=== PATIENT | male | born 1940 | race Two or more races ===

== ENCOUNTER 2019-01-28 14:07 | Inpatient (IN) | payer MEDICARE, OTHER ==
[~2019-01-28] VITALS: Ht 167.6 cm; Wt 69.4 kg
[2019-01-28 14:15] VITALS: BP 114/52
--- NOTE | 2019-01-28 14:17 | NUR ---
ED Nurse Note:pt. was BIBA from home s/p fall yesterday and he was on the floor all night till rescued today, pt. is A/Ox3 non ambulatory, seen by ER
--- NOTE | 2019-01-28 14:26 | Emergency Room Report ---
History of Present Illness General Chief Complaint: Multiple Trauma/Fall Source: EMS Present Illness HPI This is a 78-year-old male who states he he is homeless, who tripped and fell last night and injured his left hip. He was unable to walk and laid on the ground all night.. He denies any loss of consciousness. He denies any headache. He denies any head injury. He complains of no neck pain. He states that the left hip pain is constant and worse on movement. A dull pain Allergies: Coded Allergies: No Known Allergies (Unverified , 01/28/19) Patient History Past Medical History: other - Arthritis Past Surgical History: none Pertinent Family History: none Nursing Documentation-PMH Hx Hypertension: Yes Review of Systems All Other Systems: negative except mentioned in HPI Physical Exam Vital Signs Date Time Temp Pulse Resp B/P (MAP) Pulse Ox O2 Delivery O2 Flow Rate FiO2 01/28/19 13:55 97.3 60 18 114/52 99 Room Air Head: normocephalic, atraumatic ENT: hearing grossly normal, normal voice Neck: full range of motion, supple Cardiovascular #1: regular rate, rhythm, no edema Musculoskeletal: other - left hip tenderness. shortened leg. distal NV intact Medical Decision Making Diagnostic Impression: Primary Impression: Intertrochanteric fracture of left hip ER Course Patient presented with significant complexity risk. I see no evidence of cervical spine injury. X-ray was reviewed. The patient was given IV morphine for pain. I discussed this with the on-call physician who will admit this patient to his service. Abdomen is soft. The patient is alert and oriented. Laboratory Tests Test 01/28/19 14:35 01/28/19 15:25 White Blood Count 9.8 K/UL (4.8-10.8) Red Blood Count 4.06 M/UL (4.70-6.10) L Hemoglobin 11.9 G/DL (14.2-18.0) L Hematocrit 36.1 % (42.0-52.0) L Mean Corpuscular Volume 89 FL (80-99) Mean Corpuscular Hemoglobin 29.4 PG (27.0-31.0) Mean Corpuscular Hemoglobin Concent 33.1 G/DL (32.0-36.0) Red Cell Distribution Width 14.1 % (11.6-14.8) Platelet Count 228 K/UL (150-450) Mean Platelet Volume 6.2 FL (6.5-10.1) L Neutrophils (%) (Auto) % (45.0-75.0) Lymphocytes (%) (Auto) % (20.0-45.0) Monocytes (%) (Auto) % (1.0-10.0) Eosinophils (%) (Auto) % (0.0-3.0) Basophils (%) (Auto) % (0.0-2.0) Differential Total Cells Counted 100 Neutrophils % (Manual) 87 % (45-75) H Lymphocytes % (Manual) 8 % (20-45) L Monocytes % (Manual) 5 % (1-10) Eosinophils % (Manual) 0 % (0-3) Basophils % (Manual) 0 % (0-2) Band Neutrophils 0 % (0-8) Platelet Estimate Adequate Platelet Morphology Normal Hypochromasia 1+ Anisocytosis 1+ Sodium Level 133 MMOL/L (136-145) L Potassium Level 4.0 MMOL/L (3.5-5.1) Chloride Level 97 MMOL/L (98-107) L Carbon Dioxide Level 25 MMOL/L (21-32) Anion Gap 11 mmol/L (5-15) Blood Urea Nitrogen 35 mg/dL (7-18) H Creatinine 2.1 MG/DL (0.55-1.30) H Estimate Glomerular Filtration Rate mL/min (>60) Glucose Level 99 MG/DL (74-106) Calcium Level 9.4 MG/DL (8.5-10.1) Total Bilirubin 0.9 MG/DL (0.2-1.0) Aspartate Amino Transferase (AST) 66 U/L (15-37) H Alanine Aminotransferase (ALT) 54 U/L (12-78) Alkaline Phosphatase 320 U/L (46-116) H Total Creatine Kinase 234 U/L (26-308) Total Protein 8.7 G/DL (6.4-8.2) H Albumin 3.7 G/DL (3.4-5.0) Globulin 5.0 g/dL Albumin/Globulin Ratio 0.7 (1.0-2.7) L Prothrombin Time 10.6 SEC (9.30-11.50) Prothrombin Time INR 1.0 (0.9-1.1) PTT 30 SEC (23-33) EKG Diagnostic Results EKG Time: 16:22 Rate: normal Rhythm: NSR ST Segments: no acute changes ASA given to the pt in ED: No Rhythm Strip Diag. Results Rhythm Strip Time: 16:22 EP Interpretation: yes Rhythm: NSR, no PVC's, no ectopy Last Vital Signs Date Time Temp Pulse Resp B/P (MAP) Pulse Ox O2 Delivery O2 Flow Rate FiO2 01/28/19 14:15 60 18 Room Air 01/28/19 14:15 97.3 114/52 99 Disposition: ADMITTED INPATIENT Condition: Serious Scripts Unable to Obtain Active Prescriptions or Reported Meds TD DAVE Jan 28, 2019 14:26
[2019-01-28] MEDS ORDERED: Morphine Sulfate 4mg/ml Inj (IV USE ONLY) IVP ONE (14:30)
[2019-01-28] MEDS: Sodium Chloride 550 ML IV SCH ×2 (14:36→18:54)
[2019-01-28 14:48] LABS: HEMATOCRIT 36.1 % (42.0-52.0); HEMOGLOBIN 11.9 G/DL (14.2-18.0); MEAN CORPUSCULAR VOLUME 89 FL (80-99); PLATELET COUNT 228 K/UL (150-450); RED BLOOD COUNT 4.06 M/UL (4.70-6.10); RED CELL DISTRIBUTION WIDTH 14.1 % (11.6-14.8); WHITE BLOOD COUNT 9.8 K/UL (4.8-10.8)
[2019-01-28 14:58] LABS: ANION GAP 11 mmol/L (5-15); BLOOD UREA NITROGEN 35 mg/dL (7-18); CALCIUM 9.4 MG/DL (8.5-10.1); CARBON DIOXIDE 25 MMOL/L (21-32); CHLORIDE 97 MMOL/L (98-107); CREATININE 2.1 MG/DL (0.55-1.30); SODIUM 133 MMOL/L (136-145)
[2019-01-28 15:03] LABS: ALANINE AMINOTRANSFERASE 54 U/L (12-78); ALBUMIN 3.7 G/DL (3.4-5.0); ALBUMIN/GLOBULIN RATIO 0.7 (1.0-2.7); ALKALINE PHOSPHATASE 320 U/L (46-116); ASPARTATE AMINO TRANSFERASE 66 U/L (15-37); BILIRUBIN,TOTAL 0.9 MG/DL (0.2-1.0); CREATINE KINASE 234 U/L (26-308)
--- NOTE | 2019-01-28 16:17 | Diagnostic Imaging Report ---
Indication: Left hip pain, trauma Technique: 2 views of the left hip Comparison: none Findings: There is an intertrochanteric fracture of the left hip. This is distracted by about 1 cm, slightly angulated. No acetabular fracture demonstrated. The hip joint is preserved. Impression: Positive for left hip intertrochanteric fracture
[2019-01-28] MEDS ORDERED: Morphine Sulfate 4mg/ml Inj (IV USE ONLY) IVP PRN (16:45)
[2019-01-28 17:24] VITALS: BP 118/58
--- NOTE | 2019-01-28 19:58 | NUR ---
ER Nurse Note: Report given to MORTEZA Reynolds in [place] for continuity of care. Pt a&ox4, VSS, no signs of distress. Pt is asleep; no signs of pain. All belonging taken with pt.
[2019-01-28 20:00] VITALS: BP 120/60
--- NOTE | 2019-01-28 20:40 | NUR ---
NURSE NOTES: Report received from Elda [employer]. Patient is transferred via gurney from ER to [address] [place] [address] without any incident. Patient is AOx4 and able to make needs known. Respiratory even and unlabored. Patient complains of 4/10 on left hip pain; will address as appropriate. IV site is asymptomatic, patent, and intact. Pedal pulse present on affected leg, warm and able to feel sensation. Belongings list checked and signed with Ed [employer]. Patient has money at bedside, patient refused to take money in the safe and requested to be kept at bedside. VSS. Skin assessment done. Bed is in lowest position with side rails up x2 and brakes are engaged. Encouraged patient to use call light when in need of assistance, pt verbalized understanding. Will contact primary MD for inpatient orders.
[2019-01-28] MEDS ORDERED: HYDROcodone/Acetamin 5/325 tab ORAL PRN (21:30)
[2019-01-28] MEDS ORDERED: Morphine Sulfate 2mg/ml Inj(IV/IM USE ONLY) IVP PRN (21:30)
--- NOTE | 2019-01-28 21:30 | NUR ---
NURSE NOTES: Nephew is at bedside. Per family member, patient lives alone at home. Patient states he does not have home medications other than OTC medications and no past medical history.
[2019-01-29] VITALS: BP 131/62
--- NOTE | 2019-01-29 01:00 | NUR ---
NURSE NOTES: Patient is asleep but arousable by voice. Respiratory even and unlabored. VSS. Will continue to monitor.
[2019-01-29 04:00] VITALS: BP 134/70
--- NOTE | 2019-01-29 04:08 | NUR ---
NURSE NOTES: Patient is asleep but easily arousable. Visible chest rise observed. Respiratory even and unlabored. Will continue to monitor.
[2019-01-29 06:23] LABS: BASOPHILS % (AUTO) 0.6 % (0.0-2.0); EOSINOPHILS % (AUTO) 3.4 % (0.0-3.0); HEMATOCRIT 32.2 % (42.0-52.0); HEMOGLOBIN 10.6 G/DL (14.2-18.0); LYMPHOCYTES % (AUTO) 11.5 % (20.0-45.0); MEAN CORPUSCULAR VOLUME 89 FL (80-99); MONOCYTES % (AUTO) 11.4 % (1.0-10.0); NEUTROPHILS % (AUTO) 73.2 % (45.0-75.0); PLATELET COUNT 178 K/UL (150-450); RED BLOOD COUNT 3.62 M/UL (4.70-6.10); RED CELL DISTRIBUTION WIDTH 14.3 % (11.6-14.8); WHITE BLOOD COUNT 7.8 K/UL (4.8-10.8)
[2019-01-29 07:05] LABS: ANION GAP 10 mmol/L (5-15); BLOOD UREA NITROGEN 33 mg/dL (7-18); CARBON DIOXIDE 25 MMOL/L (21-32); CHLORIDE 101 MMOL/L (98-107); CHOLESTEROL 114 MG/DL (< 200); CREATININE 1.7 MG/DL (0.55-1.30); HDL CHOLESTEROL 43 MG/DL (40-60); POTASSIUM 4.4 MMOL/L (3.5-5.1); SODIUM 135 MMOL/L (136-145); TRIGLYCERIDES 135 MG/DL (30-150)
--- NOTE | 2019-01-29 07:20 | NUR ---
HAND-OFF: Report given to Leeroy PRO. Patient is observed in bed, awake, alert, oriented. Patient is in stable condition. Endorsed plan of care.
--- NOTE | 2019-01-29 07:34 | NUR ---
NURSE NOTES: Received report from MORTEZA Reynolds. Rounding done with outgoing nurse. Patient a/o x4 having breakfast. No respiratory distress noted. Denies pain at this time. Questions answered. Bed in lowest position, call light within reach. Will continue to monitor.
[2019-01-29 08:00] VITALS: BP 96/54
[2019-01-29] MEDS: Heparin 5000 units/ml inj SUBQ SCH ×2 (08:49→20:03)
--- NOTE | 2019-01-29 09:49 | NUR ---
CASE MANAGEMENT:REVIEW 78 YR OLD MALE BIBA FROM HOME CC: S/P FALL SI: LT HIP FRACTURE 97.4 60 18 114/52 99% ON RA IS: IV MORPHINE IV ZOFRAN XRAY HIP : TO MED/[facility]
--- NOTE | 2019-01-29 11:41 | History & Physical ---
History and Physical History & Physicial Patient is seen and examined. Full Dictation completed on 1141 hrs Guille Stephen MD Jan 29, 2019 11:41
--- NOTE | 2019-01-29 11:43 | General Progress Note ---
Assessment/Plan Assessment/Plan Full Dictatin in progress Plan: Ortho , per Dr Bourgeois Started on Thyroid supplementation Renal US Comment: I reviewed result of Echo. Patient is medically stable for planned surgery, with no medical contraindication. Patient is in moderate cardiovascular risk for this surgery ,with 1-3 % risk of periop cardiac morbidity. Subjective Allergies: Coded Allergies: No Known Allergies (Unverified , 01/28/19) Objective Last 24 Hour Vital Signs Date Time Temp Pulse Resp B/P (MAP) Pulse Ox O2 Delivery O2 Flow Rate FiO2 01/29/19 08:00 98.2 82 19 96/54 (68) 96 01/29/19 04:00 98.3 70 17 134/70 (91) 98 01/29/19 00:00 98.1 65 18 131/62 (85) 98 01/28/19 23:42 Room Air 01/28/19 20:00 97.3 78 17 120/60 99 Room Air 01/28/19 20:00 97.2 82 17 120/60 99 Room Air 01/28/19 17:24 97.3 01/28/19 17:24 97.3 65 17 118/58 99 Room Air 01/28/19 16:14 97.3 01/28/19 14:15 60 18 Room Air 01/28/19 14:15 97.3 60 18 114/52 99 Room Air 01/28/19 13:55 97.3 60 18 114/52 99 Room Air Intake and Output 01/28/19 01/29/19 18:59 06:59 Intake Total 5860 ml Output Total 150 ml Balance 5710 ml Intake Oral 360 ml IV Total 5500 ml Output Urine Total 150 ml # Voids 2 Laboratory Tests 01/28/19 14:35: White Blood Count 9.8, Red Blood Count 4.06L, Hemoglobin 11.9L, Hematocrit 36.1L , Mean Corpuscular Volume 89, Mean Corpuscular Hemoglobin 29.4, Mean Corpuscular Hemoglobin Concent 33.1, Red Cell Distribution Width 14.1, Platelet Count 228, Mean Platelet Volume 6.2L, Neutrophils (%) (Auto) , Lymphocytes (%) ( Auto) , Monocytes (%) (Auto) , Eosinophils (%) (Auto) , Basophils (%) (Auto) , Differential Total Cells Counted 100, Neutrophils % (Manual) 87H, Lymphocytes % (Manual) 8L, Monocytes % (Manual) 5, Eosinophils % (Manual) 0, Basophils % ( Manual) 0, Band Neutrophils 0, Platelet Estimate Adequate, Platelet Morphology Normal, Hypochromasia 1+, Anisocytosis 1+, Sodium Level 133L, Potassium Level 4.0, Chloride Level 97L, Carbon Dioxide Level 25, Anion Gap 11, Blood Urea Nitrogen 35H, Creatinine 2.1H, Estimat Glomerular Filtration Rate , Glucose Level 99, Calcium Level 9.4, Total Bilirubin 0.9, Aspartate Amino Transf (AST/ SGOT) 66H, Alanine Aminotransferase (ALT/SGPT) 54, Alkaline Phosphatase 320H, Total Creatine Kinase 234, Total Protein 8.7H, Albumin 3.7, Globulin 5.0, Albumin/Globulin Ratio 0.7L 01/28/19 15:25: Prothrombin Time 10.6, Prothromb Time International Ratio 1.0, Activated Partial Thromboplast Time 30 01/29/19 05:50: White Blood Count 7.8, Red Blood Count 3.62L, Hemoglobin 10.6L, Hematocrit 32.2L , Mean Corpuscular Volume 89, Mean Corpuscular Hemoglobin 29.3, Mean Corpuscular Hemoglobin Concent 32.9, Red Cell Distribution Width 14.3, Platelet Count 178, Mean Platelet Volume 7.4, Neutrophils (%) (Auto) 73.2, Lymphocytes (% ) (Auto) 11.5L, Monocytes (%) (Auto) 11.4H, Eosinophils (%) (Auto) 3.4H, Basophils (%) (Auto) 0.6, Sodium Level 135L, Potassium Level 4.4, Chloride Level 101, Carbon Dioxide Level 25, Anion Gap 10, Blood Urea Nitrogen 33H, Creatinine 1.7H, Estimat Glomerular Filtration Rate , Glucose Level 79, Calcium Level 9.0, Hemoglobin A1c 5.9, Pro-B-Type Natriuretic Peptide 2717H, Triglycerides Level 135, Cholesterol Level 114, LDL Cholesterol 51, HDL Cholesterol 43, Cholesterol/HDL Ratio 2.7L, Thyroid Stimulating Hormone (TSH) 5.525H Height (Feet): 5 Height (Inches): 6.00 Weight (Pounds): 155 Guille Stephen MD Jan 29, 2019 11:42
[2019-01-29 12:00] VITALS: BP 104/57
--- NOTE | 2019-01-29 13:19 | Consultation ---
Consult Note Consult Note chart reviewed. left hip IT fracture after a fall plan for left hip ORIF tomorrow am 6:45 med clearance 2D echo NPO Mamie Moya Jan 29, 2019 13:19
--- NOTE | 2019-01-29 14:17 | Consultation ---
Consult Note Consult Note asked to eval for elevated Cr This is a 78-year-old male who states he he is homeless, who tripped and fell last night and injured his left hip. He was unable to walk and laid on the ground all night.. He denies any loss of consciousness. He denies any headache. He denies any head injury. He complains of no neck pain. He states that the left hip pain is constant and worse on movement. A dull pain Allergies: No Known Allergies (Unverified , 01/28/19) Hx Hypertension: Yes Assessment/Plan Acute Renal failure ? Underlying CKD Fall, Left Hip fx Anemia Hyponatremia Slow Hydrate with Isotonic solution Stool Softner Anemia kat Urine studies monitor renal parameters Denver Weiss MD Jan 29, 2019 14:17
[2019-01-29] MEDS: D5NS 1,000 ML IV SCH (15:17)
--- NOTE | 2019-01-29 15:23 | NUR ---
NURSE NOTES: 2D echo was done and Dr. Stephen notified regarding the results.
--- NOTE | 2019-01-29 15:54 | NUR ---
NURSE NOTES: Tried to insert jean catheter but failed. Patient refused to get inserted. Called Dr. Ward and left message.
--- NOTE | 2019-01-29 15:57 | Anethesia Preoperative Eval ---
Anesthesia Pre-op PMH/ROS General Date of Evaluation: Jan 29, 2019 Time of Evaluation: 15:54 Anesthesiologist: Attila ASA Score: ASA 2 Mallampati Score Class I : Soft palate, uvula, fauces, pillars visible Class II: Soft palate, uvula, fauces visible Class III: Soft palate, base of uvula visible Class IV: Only hard plate visible Mallampati Classification: Class II Surgeon: Ivanna Diagnosis: L hip Fx Surgical Procedure: ORIF of L hip Fx Anesthesia History: none Social History: smoking - h/o Family History: no anesthesia problems Allergies: Coded Allergies: No Known Allergies (Unverified , 01/28/19) Medications: see eMAR Patient NPO?: Yes Past Medical History Cardiovascular: Reports: HTN; Denies: CAD, IN, valve dz, arrhythmia, other Pulmonary: Denies: asthma, COPD, SHIVA, other Gastrointestinal/Genitourinary: Reports: GERD, CRI Neurologic/Psychiatric: Denies: dementia, CVA, depression/anxiety, TIA, other Endocrine: Reports: hypothyroidism; Denies: DM, steroids, other HEENT: Denies: cataract (L), cataract (R), glaucoma, BUCK[place] (L), [place] (R), other Hematology/Immune: Reports: anemia - mild Musculoskeletal/Integumentary: Reports: OA; Denies: RA, DJD, DDD, edema, other PMH Narrative: as above PSxH Narrative: see H&P Anesthesia Pre-op Phys. Exam Physician Exam Last Vital Signs Date Time Temp Pulse Resp B/P (MAP) Pulse Ox O2 Delivery O2 Flow Rate FiO2 01/29/19 12:00 98.4 63 20 104/57 (73) 95 01/29/19 09:00 Room Air Constitutional: NAD Neurologic: CN 2-12 intact Cardiovascular: RRR, no M/R/G Respiratory: CTA Gastrointestinal: S/NT/ND Airway Exam Mallampati Score: Class II MO: limited Neck: stiff ROM: limited Teeth: missing Dentures: no upper, no lower Anesthesia Pre-op A/P Labs Hematology Test 01/29/19 05:50 White Blood Count 7.8 K/UL (4.8-10.8) Red Blood Count 3.62 M/UL (4.70-6.10) L Hemoglobin 10.6 G/DL (14.2-18.0) L Hematocrit 32.2 % (42.0-52.0) L Mean Corpuscular Volume 89 FL (80-99) Mean Corpuscular Hemoglobin 29.3 PG (27.0-31.0) Mean Corpuscular Hemoglobin Concent 32.9 G/DL (32.0-36.0) Red Cell Distribution Width 14.3 % (11.6-14.8) Platelet Count 178 K/UL (150-450) Mean Platelet Volume 7.4 FL (6.5-10.1) Neutrophils (%) (Auto) 73.2 % (45.0-75.0) Lymphocytes (%) (Auto) 11.5 % (20.0-45.0) L Monocytes (%) (Auto) 11.4 % (1.0-10.0) H Eosinophils (%) (Auto) 3.4 % (0.0-3.0) H Basophils (%) (Auto) 0.6 % (0.0-2.0) Chemistry Test 01/29/19 05:50 Sodium Level 135 MMOL/L (136-145) L Potassium Level 4.4 MMOL/L (3.5-5.1) Chloride Level 101 MMOL/L (98-107) Carbon Dioxide Level 25 MMOL/L (21-32) Anion Gap 10 mmol/L (5-15) Blood Urea Nitrogen 33 mg/dL (7-18) H Creatinine 1.7 MG/DL (0.55-1.30) H Estimat Glomerular Filtration Rate mL/min (>60) Glucose Level 79 MG/DL (74-106) Hemoglobin A1c 5.9 % (4.3-6.0) Calcium Level 9.0 MG/DL (8.5-10.1) C-Reactive Protein, Quantitative 7.6 mg/dL (0.00-0.90) H Pro-B-Type Natriuretic Peptide 2717 pg/mL (0-125) H Triglycerides Level 135 MG/DL (30-150) Cholesterol Level 114 MG/DL (< 200) LDL Cholesterol 51 mg/dL (<100) HDL Cholesterol 43 MG/DL (40-60) Cholesterol/HDL Ratio 2.7 (3.3-4.4) L Thyroid Stimulating Hormone (TSH) 5.525 uiU/mL (0.358-3.740) Studies Pre-op Studies: EKG - SR Risk Assessment & Plan Assessment: ASA 2 Plan: SAB vs GA Status Change Before Surgery: No Pre-Antibiotics Drug: as scheduled Peter Aiken MD Jan 29, 2019 15:57
[2019-01-29 16:00] VITALS: BP 114/74
--- NOTE | 2019-01-29 16:52 | Cardiology Report ---
APPROVED REPORT EXAM: Two-dimensional and M-mode echocardiogram with Doppler and color Doppler. INDICATION Pre-Op M-Mode DIMENSIONS IVSd0.8 (0.7-1.1cm)Left Atrium (MM)3.0 (1.6-4.0cm) LVDd5.5 (3.5-5.6cm)Aortic Root3.6 (2.0-3.7cm) PWd1.2 (0.7-1.1cm)Aortic Cusp Exc.1.7 (1.5-2.0cm) LVDs3.6 (2.5-4.0cm) PWs1.3 cm Normal left ventricular chamber size, systolic function and wall motion. Left ventricular ejection fraction estimated to be 55 %. Mild left ventricular hypertrophy by 2D. Anterior Echo-free space, may be due to pericardial fat or effusion. All other cardiac chamber sizes are within normal limits. Focal aortic valve sclerosis with adequate cusp excursion. Thickened mitral valve leaflets with normal excursion. Mitral annulus and aortic root calcification. Pulmonic valve not well visualized. Normal tricuspid valve structure. IVC measured at 1.7 cm with slight physiologic collapse A color flow and spectral Doppler study was performed and revealed: No aortic regurgitation. Trace mitral regurgitation. Mitral diastolic velocities suggest reduced left ventricular relaxation c/w mild LV diastolic dysfunction (Grade I ). Trace tricuspid regurgitation. Tricuspid systolic velocities suggests peak right ventricular systolic pressure of 13 mmHg
--- NOTE | 2019-01-29 17:02 | Cardiology Report ---
APPROVED REPORT EKG Measurement Heart [id number] CO [id number] Sinus rhythm with 1st degree AV block with occasional premature ventricular complexes Abnormal ECG
[2019-01-29] MEDS: Docusate 100mg cap ORAL SCH (17:37)
--- NOTE | 2019-01-29 18:00 | NUR ---
NURSE NOTES: Dr. Ward did not call back. Called Dr. Ward and left the message.
--- NOTE | 2019-01-29 18:30 | NUR ---
NURSE NOTES: Patient will get surgery tomorrow morning 0600am and midnight NPO instruction was given.
--- NOTE | 2019-01-29 19:30 | NUR ---
HAND-OFF: Report given to MORTEZA Davis. Patient in stable condition. Endorsed to night nurse regarding Dr. Ward did not call me back for refusing jean catheter.
--- NOTE | 2019-01-29 19:30 | History and Physical Report ---
DATE OF ADMISSION: 01/28/2019 SOURCE OF INFORMATION: Patient and EMR. HISTORY OF PRESENT ILLNESS: The patient is a 78-year-old male with unremarkable history, who fell down on the street and was transferred to the hospital with diagnosis of a left-sided hip fracture. At the time of evaluation, the patient denies chest pain or shortness of breath. No nausea. No vomitus. No diarrhea. No constipation. SOCIAL HISTORY: The patient originally from [facility]. The patient denies history of illicit drug abuse or alcohol abuse. Denies tobacco use. REVIEW OF SYSTEMS: All 14 elements of review of systems reviewed. Pertinent positive and negative as above. MEDICATIONS: Current hospital medications including, but not limited to Buck[place] p.r.n., acetaminophen, Protonix. IMAGING: Hip x-ray dated 01/28/2019 shows intertrochanteric fracture of left hip. PAST MEDICAL AND SURGICAL HISTORY: The patient denies. PHYSICAL EXAMINATION: VITAL SIGNS: Blood pressure 110/50, temperature 98.2, pulse ox 98% on room air, respiratory rate 18. HEAD AND NECK: Atraumatic and normocephalic. CHEST: Clear to auscultation. HEART: S1, S2. Regular rate and rhythm. ABDOMEN: Soft. No organomegaly. MUSCULOSKELETAL: Positive for decreased range of motion on the left lower extremity. NEUROLOGY: The patient is awake, alert, oriented x3. LABORATORY DATA: Labs dated 01/28/2019 WBC 9.8, hemoglobin 11.9, platelet 228. Sodium 133, potassium 4, BUN 35, creatinine 2.1. AST 66. TSH 5.5. ASSESSMENT AND PLAN: 1. Acute left-sided intertrochanteric fracture secondary to mechanical fall. 2. Hypothyroidism. 3. Abnormal LFT. 4. Renal failure - age indeterminate. 5. Gastrointestinal and DVT prophylaxes. PLAN OF CARE: I will order the renal ultrasound. We will provide the pain medication. We will start the patient on levothyroxine. Nephrology, Cardiology, and Orthopedic services have been consulted. Guille Stephen M.D. DR: CHRISTOPHER JOB#: [id number] CC:
--- NOTE | 2019-01-29 19:31 | NUR ---
NURSE NOTES: Received report & pt from MORTEZA Dawson. Pt lying in bed, a&ox4, in room air. No s/s of acute distress & no c/o pain at this time. Pt aware of NPO status @ midnight for tomorrow's surgery. IV site intact with IVF running as ordered. Bed in lowest position, call light within reach. Will continue to monitor.
--- NOTE | 2019-01-29 19:59 | NUR ---
NURSE NOTES: Called & ask Dr. Goncalves if he wants to hold tonight's heparin because pt will go for surgery tomorrow. Per , "Hold please. Are consent signed" & informed doctor that consent has been signed already.
[2019-01-29 20:00] VITALS: BP 106/63
[2019-01-29] MEDS: Pantoprazole Inj IVP SCH (20:21)
[2019-01-29 20:27] LABS: APPEARANCE,URINE CLEAR; BILIRUBIN, URINE NEGATIVE (NEGATIVE); COLOR,URINE PALE YELLOW; GLUCOSE, URINE (UA) NEGATIVE (NEGATIVE); KETONES,URINE NEGATIVE (NEGATIVE); LEUKOCYTE ESTERASE ,URINE 1+ (NEGATIVE); NITRITE,URINE NEGATIVE (NEGATIVE); PH,URINE 6 (4.5-8.0); PROTEIN,URINE 1+ (NEGATIVE); UROBILINOGEN,URINE NORMAL MG/DL (0.0-1.0)
[2019-01-30] VITALS (18 sets, daily range): BP systolic 91–124; BP diastolic 50–78
[2019-01-30 05:35] LABS: BASOPHILS % (AUTO) 0.7 % (0.0-2.0); HEMATOCRIT 31.3 % (42.0-52.0); HEMOGLOBIN 10.3 G/DL (14.2-18.0); LYMPHOCYTES % (AUTO) 13.3 % (20.0-45.0); MEAN CORPUSCULAR VOLUME 89 FL (80-99); MONOCYTES % (AUTO) 14.2 % (1.0-10.0); NEUTROPHILS % (AUTO) 68.8 % (45.0-75.0); PLATELET COUNT 190 K/UL (150-450); RED BLOOD COUNT 3.53 M/UL (4.70-6.10); RED CELL DISTRIBUTION WIDTH 14.1 % (11.6-14.8); WHITE BLOOD COUNT 8.5 K/UL (4.8-10.8)
[2019-01-30 06:05] LABS: ALANINE AMINOTRANSFERASE 35 U/L (12-78); ALBUMIN 2.9 G/DL (3.4-5.0); ALBUMIN/GLOBULIN RATIO 0.6 (1.0-2.7); ALKALINE PHOSPHATASE 255 U/L (46-116); ANION GAP 10 mmol/L (5-15); ASPARTATE AMINO TRANSFERASE 38 U/L (15-37); BILIRUBIN,TOTAL 0.5 MG/DL (0.2-1.0); BLOOD UREA NITROGEN 26 mg/dL (7-18); CALCIUM 8.9 MG/DL (8.5-10.1); CARBON DIOXIDE 24 MMOL/L (21-32); CHLORIDE 102 MMOL/L (98-107); CHOLESTEROL 119 MG/DL (< 200); CREATINE KINASE 138 U/L (26-308); CREATININE 1.4 MG/DL (0.55-1.30); FERRITIN 252 NG/ML (8-388); GAMMA GLUTAMYL TRANSPEPTIDASE 439 U/L (5-85); HDL CHOLESTEROL 46 MG/DL (40-60); PHOSPHORUS 2.4 MG/DL (2.5-4.9); POTASSIUM 4.2 MMOL/L (3.5-5.1); SODIUM 136 MMOL/L (136-145); TRIGLYCERIDES 121 MG/DL (30-150)
[2019-01-30 06:15] LABS: % IRON SATURATION 13 % (15-50); IRON 28 ug/dL (50-175); TOTAL IRON BINDING CAPACITY 221 ug/dL (250-450)
--- NOTE | 2019-01-30 06:18 | NUR ---
NURSE NOTES: Picked up by Pieter wolf. Pt's ID band verified. Pt to go down for surgery. In stable condition, no distress & no pain.
[2019-01-30] MEDS ORDERED: Bupivacaine 0.5% Inj 30 ml vial INJ ONE (06:19)
[2019-01-30] MEDS ORDERED: Bacitracin 50000 Units Vial ONE (06:19)
[2019-01-30] MEDS ORDERED: NeoSporin Gu Irrig 1ml Amp IRRIG ONE ×2 (06:19→06:57)
[2019-01-30] MEDS ORDERED: Bupivacaine w/Epi 0.5% 30ml Vial INJ ONE (06:19)
[2019-01-30] MEDS ORDERED: LR 1000ml 1,000 ML IVLG SCH (06:23)
[2019-01-30] MEDS ORDERED: DiphenhydrAMINE 50mg/ml Inj IVP PRN (06:30)
[2019-01-30] MEDS: Levothyroxine 25mcg tab ORAL SCH (06:30)
[2019-01-30] MEDS ORDERED: LORazepam Inj 2mg/ml 1ml IV PRN (06:30)
[2019-01-30] MEDS ORDERED: Hydromorphone 0.5mg/0.5ml inj IVP PRN (06:30)
[2019-01-30] MEDS ORDERED: fentaNYL 100 mcg/2 mL IV PRN (06:30)
[2019-01-30] MEDS ORDERED: Propofol 200mg/20ml IV ONE (06:35)
[2019-01-30] MEDS ORDERED: fentaNYL 100 mcg/2 mL IV ONE (06:35)
[2019-01-30] MEDS ORDERED: Lidocaine 1% MPF 10mg/ml 5ml ONE (06:35)
[2019-01-30] MEDS ORDERED: Midazolam 2mg/2ml Inj ONE (06:35)
[2019-01-30] MEDS ORDERED: Morphine Sulfate PF 10 ML ONE (06:41)
[2019-01-30] MEDS ORDERED: cloNIDine 1000mcg/10ml inj ONE (06:42)
--- NOTE | 2019-01-30 06:52 | Consultation ---
Consult Note Consult Note 78 yo male with fall on monday. c/o left hip pain and was found on the sidewalk. taken to [facility] found to have left hip IT fracture PMH: none PSx: none social: homeless. ambulates independently exam: left hip pain tenderness. n/v intact xray reviewed: left hip IT fracture Assessment/Plan 1. left hip IT fracture plan: ORIF today Mamie Stephens Jan 30, 2019 06:52
--- NOTE | 2019-01-30 06:54 | Pre-Procedure Note/Attestation ---
Pre-Procedure Note/Attestation Complete Prior to Procedure Planned Procedure: left Procedure Narrative: left hip ORIF Indications for Procedure Pre-Operative Diagnosis: left hip fracture Attestation I attest that I discussed the nature of the procedure; its benefits; risks and complications; and alternatives (and the risks and benefits of such alternatives ), prior to the procedure, with the patient (or the patient's legal correspondence representative). I attest that, if there was a reasonable possibility of needing a blood transfusion, the patient (or the patient's legal correspondence representative) was given the [facility] standardized written summary, pursuant to the Lonny Wharton Blood Safety Act ([place] Health and Safety Code # 1645, as amended). I attest that I re-evaluated the patient just prior to the surgery and that there has been no change in the patient's H&P, except as documented below: NONE Ramesh Goncalves MD Jan 30, 2019 06:54
[2019-01-30] MEDS ORDERED: Bacitracin 50000 Units Vial IRRIG ONE (06:57)
[2019-01-30] MEDS ORDERED: Sterile Water For Irrig 2000ml IRRIG ONE (07:00)
[2019-01-30] MEDS ORDERED: LR 1000ml ONE (07:00)
[2019-01-30] MEDS ORDERED: NS Irrig 1000ml ONE (07:00)
[2019-01-30] MEDS ORDERED: HYDROcodone/Acetamin 7.5/325 tab ORAL PRN (07:00)
[2019-01-30] MEDS ORDERED: HYDROmorphone 1mg/ml Carpuject SUBQ PRN (07:00)
--- NOTE | 2019-01-30 07:32 | Immediate Post-Op Evaluation ---
Immediate Post-Op Evalulation Immediate Post-Op Evalulation Procedure: Left hip ORIF Date of Evaluation: Jan 30, 2019 Time of Evaluation: 08:45 IV Fluids: 900 Blood Products: 0 Estimated Blood Loss: 100 Urinary Output: 825 Blood Pressure Systolic: 104 Blood Pressure Diastolic: 67 Pulse Rate: 68 Respiratory Rate: 16 O2 Sat by Pulse Oximetry: 100 Temperature (Fahrenheit): 97 Pain Score (1-10): 0 Nausea: No Vomiting: No Complications 0 Patient Status: awake, reacts, patent, none Hydration Status: adequate Drug: Ancef 1g Given Within 1 Hr of Incision: Yes Mame Isbell MD Jan 30, 2019 07:32
--- NOTE | 2019-01-30 07:35 | NUR ---
HAND-OFF: Report given to Balaji Blanca RN.
--- NOTE | 2019-01-30 07:40 | NUR ---
NURSE NOTES: Patient off unit for surgery.
--- NOTE | 2019-01-30 08:33 | Brief Operative Note ---
Immediate Post Operative Note Operative Note Chief Complaint: left hip pain Pre-op Diagnosis: left hip IT fracture Procedure: left hip ORIF Post-op Diagnosis: same as pre-op Findings: consistent w/pre-op dx studies Surgeon: md manda Cask Maker: francheska garcia Anesthesiologist: md lupe Anesthesia: general Specimen: none Complications: yes - small stable femur fracture distal to nail. will heal. will protect WB x6 weeks Fluids: ns Estimated Blood Loss: minimal Drains: none Implant(s) used?: Yes - Mamei Elizabeth Jan 30, 2019 08:33
[2019-01-30] MEDS: Docusate 100mg cap ORAL SCH ×3 (09:00→17:23)
[2019-01-30] MEDS: Heparin 5000 units/ml inj SUBQ SCH (09:00)
[2019-01-30] MEDS ORDERED: Docusate 100mg cap ORAL SCH (09:00)
[2019-01-30] MEDS: Pantoprazole Inj IVP SCH ×2 (09:00→21:15)
--- NOTE | 2019-01-30 10:17 | NUR ---
NURSE NOTES: Fatuma Dunn RN brought patient by bed in stable condition. No complain of pain or distress at this time. Surgical dressing intact and dry. IV dressing intact and dry. Bed lowest position. Call light within reach. Will continue to monitor.
--- NOTE | 2019-01-30 10:49 | General Progress Note ---
Assessment/Plan Assessment/Plan S: I am ok O: denies any severe pain PHYSICAL EXAMINATION:HEAD AND NECK: Atraumatic and normocephalic. CHEST: Clear to auscultation.HEART: S1, S2. Regular rate and rhythm. ABDOMEN: Soft. No organomegaly.MUSCULOSKELETAL: Positive for decreased range of motion on the left lower extremity.NEUROLOGY: The patient is awake, alert, oriented x3. Meds: reviewed and reconciled in chart ASSESSMENT AND PLAN: 1. Acute left-sided intertrochanteric fracture secondary to mechanical fall. 2. Hypothyroidism. 3. Abnormal LFT. 4. Renal failure - age indeterminate. 5. Gastrointestinal and DVT prophylaxes. PLAN OF CARE: Patient is medically stable for planned surgery, with no medical contraindication. Will followup post op Will consult ARU Subjective Allergies: Coded Allergies: No Known Allergies (Unverified , 01/28/19) Objective Last 24 Hour Vital Signs Date Time Temp Pulse Resp B/P (MAP) Pulse Ox O2 Delivery O2 Flow Rate FiO2 01/30/19 09:55 97.2 63 15 108/62 100 Nasal Cannula 3 01/30/19 09:45 63 15 104/54 100 Nasal Cannula 3 01/30/19 09:35 63 13 96/51 100 Nasal Cannula 3 01/30/19 09:25 64 14 103/61 99 Nasal Cannula 3 01/30/19 09:05 66 16 102/54 99 Nasal Cannula 3 01/30/19 08:55 70 17 98/61 100 Nasal Cannula 3 01/30/19 08:50 68 19 97/63 100 Nasal Cannula 3 01/30/19 08:45 73 18 102/56 100 Simple Mask 6 01/30/19 08:42 68 16 100 01/30/19 08:40 97.0 68 16 104/67 100 Simple Mask 6 01/30/19 04:00 99.8 78 20 114/65 (81) 96 01/30/19 00:00 99.8 77 20 112/71 (85) 96 01/29/19 21:00 Room Air 01/29/19 20:00 99.2 78 20 106/63 (77) 96 01/29/19 16:00 99.1 56 19 114/74 (87) 97 01/29/19 12:00 98.4 63 20 104/57 (73) 95 Intake and Output 01/29/19 01/30/19 19:00 07:00 Intake Total 960 ml 550 ml Output Total 600 ml 800 ml Balance 360 ml -250 ml Intake Oral 960 ml IV Total 550 ml Output Urine Total 600 ml 800 ml # Voids 1 Laboratory Tests 01/29/19 19:54: Urine Color Pale yellow, Urine Appearance Clear, Urine pH 6, Urine Specific [place] 1.010, Urine Protein 1+H, Urine Glucose (UA) Negative, Urine Ketones Negative, Urine Blood 5+H, Urine Nitrite Negative, Urine Bilirubin Negative, Urine Urobilinogen Normal, Urine Leukocyte Esterase 1+H, Urine RBC 40-60H, Urine WBC 0-2, Urine Squamous Epithelial Cells None, Urine Bacteria Occasional, Urine Random Sodium 77 01/30/19 05:05: White Blood Count 8.5, Red Blood Count 3.53L, Hemoglobin 10.3L, Hematocrit 31.3L , Mean Corpuscular Volume 89, Mean Corpuscular Hemoglobin 29.3, Mean Corpuscular Hemoglobin Concent 33.0, Red Cell Distribution Width 14.1, Platelet Count 190, Mean Platelet Volume 6.5, Neutrophils (%) (Auto) 68.8, Lymphocytes (% ) (Auto) 13.3L, Monocytes (%) (Auto) 14.2H, Eosinophils (%) (Auto) 3.0, Basophils (%) (Auto) 0.7, Sodium Level 136, Potassium Level 4.2, Chloride Level 102, Carbon Dioxide Level 24, Anion Gap 10, Blood Urea Nitrogen 26H, Creatinine 1.4H, Estimat Glomerular Filtration Rate , Glucose Level 89, Hemoglobin A1c 6.1H , Uric Acid 7.8H, Calcium Level 8.9, Phosphorus Level 2.4L, Magnesium Level 1.4L , Iron Level 28L, Total Iron Binding Capacity 221L, Percent Iron Saturation 13L , Unsaturated Iron Binding 193, Ferritin 252, Total Bilirubin 0.5, Gamma Glutamyl Transpeptidase 439H, Aspartate Amino Transf (AST/SGOT) 38H, Alanine Aminotransferase (ALT/SGPT) 35, Alkaline Phosphatase 255H, Total Creatine Kinase 138, Troponin I 0.028, Pro-B-Type Natriuretic Peptide 2462H, Total Protein 7.4, Albumin 2.9L, Globulin 4.5, Albumin/Globulin Ratio 0.6L, Triglycerides Level 121, Cholesterol Level 119, LDL Cholesterol 57, HDL Cholesterol 46, Cholesterol/HDL Ratio 2.6L, Vitamin B12 Level 1533H, Folate 11.2 Height (Feet): 5 Height (Inches): 6.00 Weight (Pounds): 153 Guille Stephen MD Jan 30, 2019 10:49
[2019-01-30] MEDS ORDERED: D5 1/2NS w/KCl 20mEq 1,000 ML IV SCH (11:30)
[2019-01-30] MEDS ORDERED: Sodium Phosphate 15 MM in NS 275 ML IVPB ONE (11:30)
--- NOTE | 2019-01-30 11:57 | Nephrology Progress Note ---
Assessment/Plan Problem List: (1) Renal failure (ARF), acute on chronic (2) Hyponatremia (3) Intertrochanteric fracture of left hip (4) Iron deficiency anemia Assessment Acute Renal failure Cr lower with hydration ? Underlying CKD Fall, Left Hip fx Anemia low Iron Hyponatremia improving Plan seen post op Slow Hydrate with Isotonic solution Stool Softner IV Iron Urine studies monitor renal parameters per ortho Subjective ROS Limited/Unobtainable: No Constitutional: Reports: malaise Objective Objective Last 24 Hour Vital Signs Date Time Temp Pulse Resp B/P (MAP) Pulse Ox O2 Delivery O2 Flow Rate FiO2 01/30/19 10:20 Nasal Cannula 2.0 01/30/19 09:55 97.2 63 15 108/62 100 Nasal Cannula 3 01/30/19 09:45 63 15 104/54 100 Nasal Cannula 3 01/30/19 09:35 63 13 96/51 100 Nasal Cannula 3 01/30/19 09:25 64 14 103/61 99 Nasal Cannula 3 01/30/19 09:05 66 16 102/54 99 Nasal Cannula 3 01/30/19 08:55 70 17 98/61 100 Nasal Cannula 3 01/30/19 08:50 68 19 97/63 100 Nasal Cannula 3 01/30/19 08:45 73 18 102/56 100 Simple Mask 6 01/30/19 08:42 68 16 100 01/30/19 08:40 97.0 68 16 104/67 100 Simple Mask 6 01/30/19 04:00 99.8 78 20 114/65 (81) 96 01/30/19 00:00 99.8 77 20 112/71 (85) 96 01/29/19 21:00 Room Air 01/29/19 20:00 99.2 78 20 106/63 (77) 96 01/29/19 16:00 99.1 56 19 114/74 (87) 97 01/29/19 12:00 98.4 63 20 104/57 (73) 95 Intake and Output 01/29/19 01/30/19 18:59 06:59 Intake Total 960 ml 550 ml Output Total 600 ml 800 ml Balance 360 ml -250 ml Intake Oral 960 ml IV Total 550 ml Output Urine Total 600 ml 800 ml # Voids 1 Laboratory Tests 01/29/19 19:54: Urine Color Pale yellow, Urine Appearance Clear, Urine pH 6, Urine Specific [place] 1.010, Urine Protein 1+H, Urine Glucose (UA) Negative, Urine Ketones Negative, Urine Blood 5+H, Urine Nitrite Negative, Urine Bilirubin Negative, Urine Urobilinogen Normal, Urine Leukocyte Esterase 1+H, Urine RBC 40-60H, Urine WBC 0-2, Urine Squamous Epithelial Cells None, Urine Bacteria Occasional, Urine Random Sodium 77 01/30/19 05:05: White Blood Count 8.5, Red Blood Count 3.53L, Hemoglobin 10.3L, Hematocrit 31.3L , Mean Corpuscular Volume 89, Mean Corpuscular Hemoglobin 29.3, Mean Corpuscular Hemoglobin Concent 33.0, Red Cell Distribution Width 14.1, Platelet Count 190, Mean Platelet Volume 6.5, Neutrophils (%) (Auto) 68.8, Lymphocytes (% ) (Auto) 13.3L, Monocytes (%) (Auto) 14.2H, Eosinophils (%) (Auto) 3.0, Basophils (%) (Auto) 0.7, Sodium Level 136, Potassium Level 4.2, Chloride Level 102, Carbon Dioxide Level 24, Anion Gap 10, Blood Urea Nitrogen 26H, Creatinine 1.4H, Estimat Glomerular Filtration Rate , Glucose Level 89, Hemoglobin A1c 6.1H , Uric Acid 7.8H, Calcium Level 8.9, Phosphorus Level 2.4L, Magnesium Level 1.4L , Iron Level 28L, Total Iron Binding Capacity 221L, Percent Iron Saturation 13L , Unsaturated Iron Binding 193, Ferritin 252, Total Bilirubin 0.5, Gamma Glutamyl Transpeptidase 439H, Aspartate Amino Transf (AST/SGOT) 38H, Alanine Aminotransferase (ALT/SGPT) 35, Alkaline Phosphatase 255H, Total Creatine Kinase 138, Troponin I 0.028, Pro-B-Type Natriuretic Peptide 2462H, Total Protein 7.4, Albumin 2.9L, Globulin 4.5, Albumin/Globulin Ratio 0.6L, Triglycerides Level 121, Cholesterol Level 119, LDL Cholesterol 57, HDL Cholesterol 46, Cholesterol/HDL Ratio 2.6L, Vitamin B12 Level 1533H, Folate 11.2 Height (Feet): 5 Height (Inches): 6.00 Weight (Pounds): 153 General Appearance: no apparent distress Cardiovascular: normal rate Respiratory/Chest: lungs clear Abdomen: soft Denver Weiss MD Jan 30, 2019 11:57
[2019-01-30] MEDS: D5NS 1,000 ML IV SCH (11:59)
[2019-01-30] MEDS ORDERED: ceFAZolin sod 2 GM in D5W 110 ML IV SCH (16:00)
[2019-01-30] MEDS: ceFAZolin 2gm/50ml Premix 50 ML IV SCH ×2 (16:03→23:42)
--- NOTE | 2019-01-30 19:40 | NUR ---
HAND-OFF: Report given to Susan PRO. Patient in stable condition.
--- NOTE | 2019-01-30 19:41 | NUR ---
NURSE NOTES: Received report & pt from Balaji Blanca RN. Pt lying in bed, a&ox4, in room air, family members at bedside. No s/s of acute distress & no c/o pain at this time. Surgical dressing C/D/I. IV site intact with IVF running as ordered. Bed in lowest position, call light within reach. Will continue to monitor.
--- NOTE | 2019-01-30 19:48 | Consultation ---
Consult Note Assessment/Plan NEEDS ARU PLACEMENT. [id number] Robbin Best MD Jan 30, 2019 19:48
[2019-01-30] MEDS ORDERED: Iron Sucrose 200 MG in NS 110 ML IV ONE (21:00)
--- NOTE | 2019-01-31 | NUR ---
NURSE NOTES: Pt axillary temp 101.3, cooling measures provided & tylenol PRN given. Educated pt on the importance of IS & encouraged pt to use it but pt said he did not want to do it at this time.
--- NOTE | 2019-01-31 01:01 | NUR ---
NURSE NOTES: Temp re-check 99.6 (axillary). Continued to encourage pt to use IS but pt continued to say he will do it later instead.
[2019-01-31 04:00] VITALS: BP 91/52
[2019-01-31] MEDS: Levothyroxine 25mcg tab ORAL SCH (05:34)
[2019-01-31] MEDS: D5NS 1,000 ML IV SCH ×2 (06:24→15:24)
[2019-01-31 06:41] LABS: BASOPHILS % (AUTO) 0.5 % (0.0-2.0); HEMATOCRIT 28.1 % (42.0-52.0); HEMOGLOBIN 9.2 G/DL (14.2-18.0); LYMPHOCYTES % (AUTO) 10.3 % (20.0-45.0); MEAN CORPUSCULAR VOLUME 90 FL (80-99); MONOCYTES % (AUTO) 14.8 % (1.0-10.0); NEUTROPHILS % (AUTO) 72.5 % (45.0-75.0); PLATELET COUNT 164 K/UL (150-450); RED BLOOD COUNT 3.13 M/UL (4.70-6.10); RED CELL DISTRIBUTION WIDTH 14.6 % (11.6-14.8)
--- NOTE | 2019-01-31 07:23 | NUR ---
HAND-OFF: Report given to MORTEZA Carpio.
--- NOTE | 2019-01-31 07:25 | NUR ---
NURSE NOTES: Patient lying in bed awake. No complain of pain or distress at this time. Skin intact and dry. Surgical dressing intact and dry. IV Dressing intact and dry. Bed lowest position. Call light within reach. Will continue to monitor.
[2019-01-31 07:42] LABS: ALANINE AMINOTRANSFERASE 32 U/L (12-78); ALBUMIN 2.5 G/DL (3.4-5.0); ALBUMIN/GLOBULIN RATIO 0.6 (1.0-2.7); ALKALINE PHOSPHATASE 234 U/L (46-116); ANION GAP 8 mmol/L (5-15); ASPARTATE AMINO TRANSFERASE 49 U/L (15-37); BILIRUBIN,TOTAL 0.4 MG/DL (0.2-1.0); BLOOD UREA NITROGEN 21 mg/dL (7-18); CALCIUM 8.2 MG/DL (8.5-10.1); CARBON DIOXIDE 27 MMOL/L (21-32); CHLORIDE 102 MMOL/L (98-107); CREATININE 1.4 MG/DL (0.55-1.30); POTASSIUM 4.1 MMOL/L (3.5-5.1); SODIUM 136 MMOL/L (136-145)
--- NOTE | 2019-01-31 07:46 | NUR ---
NURSE NOTES: Got a phone call from Jacqueline from LAB that Troponin Level 3.178. Called and left massage to regarding Troponin level. Waiting for call back. Will continue to monitor.
[2019-01-31 08:00] VITALS: BP 97/57
--- NOTE | 2019-01-31 08:16 | NUR ---
NURSE NOTES: Spoke to regarding Troponin level. New order received. Called and left massage to regarding cardio consult and troponin level. Waiting for call back.
--- NOTE | 2019-01-31 08:20 | Orthopedic Progress Note ---
Orthopedic - Progress Note Subjective Symptoms: c/o post-op hip pain, other - d/w patient intra-op stable and small femur fracture. understands that this will heal with protected weightbearing x6 weeks Objective Laboratory Tests Test 01/31/19 04:50 White Blood Count 10.0 K/UL (4.8-10.8) Red Blood Count 3.13 M/UL (4.70-6.10) L Hemoglobin 9.2 G/DL (14.2-18.0) L Hematocrit 28.1 % (42.0-52.0) L Mean Corpuscular Volume 90 FL (80-99) Mean Corpuscular Hemoglobin 29.5 PG (27.0-31.0) Mean Corpuscular Hemoglobin Concent 32.8 G/DL (32.0-36.0) Red Cell Distribution Width 14.6 % (11.6-14.8) Platelet Count 164 K/UL (150-450) Mean Platelet Volume 7.3 FL (6.5-10.1) Neutrophils (%) (Auto) 72.5 % (45.0-75.0) Lymphocytes (%) (Auto) 10.3 % (20.0-45.0) L Monocytes (%) (Auto) 14.8 % (1.0-10.0) H Eosinophils (%) (Auto) 2.0 % (0.0-3.0) Basophils (%) (Auto) 0.5 % (0.0-2.0) Sodium Level 136 MMOL/L (136-145) Potassium Level 4.1 MMOL/L (3.5-5.1) Chloride Level 102 MMOL/L (98-107) Carbon Dioxide Level 27 MMOL/L (21-32) Anion Gap 8 mmol/L (5-15) Blood Urea Nitrogen 21 mg/dL (7-18) H Creatinine 1.4 MG/DL (0.55-1.30) H Estimat Glomerular Filtration Rate mL/min (>60) Glucose Level 107 MG/DL (74-106) H Uric Acid 6.9 MG/DL (2.6-7.2) Calcium Level 8.2 MG/DL (8.5-10.1) L Phosphorus Level 3.0 MG/DL (2.5-4.9) Magnesium Level 2.1 MG/DL (1.8-2.4) Total Bilirubin 0.4 MG/DL (0.2-1.0) Aspartate Amino Transf (AST/SGOT) 49 U/L (15-37) H Alanine Aminotransferase (ALT/SGPT) 32 U/L (12-78) Alkaline Phosphatase 234 U/L (46-116) H Troponin I 3.178 ng/mL (0.000-0.056) Pro-B-Type Natriuretic Peptide 3971 pg/mL (0-125) H Total Protein 6.6 G/DL (6.4-8.2) Albumin 2.5 G/DL (3.4-5.0) L Globulin 4.1 g/dL Albumin/Globulin Ratio 0.6 (1.0-2.7) L Last 24 Hour Vital Signs Date Time Temp Pulse Resp B/P (MAP) Pulse Ox O2 Delivery O2 Flow Rate FiO2 01/31/19 04:00 98.3 70 18 91/52 (65) 95 01/31/19 01:01 99.6 01/31/19 01:01 99.6 01/30/19 23:52 101.3 80 18 95/62 (73) 98 01/30/19 21:00 Room Air 01/30/19 20:00 102.2 102 17 91/61 (71) 95 01/30/19 16:00 101.1 98 20 124/72 (89) 100 01/30/19 12:20 98.3 73 20 105/58 (74) 98 01/30/19 11:20 97.9 64 20 109/60 (76) 99 01/30/19 10:50 98.0 65 20 111/78 (89) 99 01/30/19 10:30 97.1 63 19 91/50 (64) 99 01/30/19 10:20 Nasal Cannula 2.0 01/30/19 09:55 97.2 63 15 108/62 100 Nasal Cannula 3 01/30/19 09:45 63 15 104/54 100 Nasal Cannula 3 01/30/19 09:35 63 13 96/51 100 Nasal Cannula 3 01/30/19 09:25 64 14 103/61 99 Nasal Cannula 3 01/30/19 09:05 66 16 102/54 99 Nasal Cannula 3 01/30/19 08:55 70 17 98/61 100 Nasal Cannula 3 01/30/19 08:50 68 19 97/63 100 Nasal Cannula 3 01/30/19 08:45 73 18 102/56 100 Simple Mask 6 01/30/19 08:42 68 16 100 01/30/19 08:40 97.0 68 16 104/67 100 Simple Mask 6 Intake and Output 01/30/19 01/31/19 19:00 07:00 Intake Total 2200 ml 1030 ml Output Total 855 ml 950 ml Balance 1345 ml 80 ml Intake Oral 1000 ml 480 ml IV Total 1200 ml 550 ml Output Urine Total 825 ml 950 ml Estimated Blood Loss 30 ml Laboratory Tests Test 01/31/19 04:50 White Blood Count 10.0 K/UL (4.8-10.8) Red Blood Count 3.13 M/UL (4.70-6.10) L Hemoglobin 9.2 G/DL (14.2-18.0) L Hematocrit 28.1 % (42.0-52.0) L Mean Corpuscular Volume 90 FL (80-99) Mean Corpuscular Hemoglobin 29.5 PG (27.0-31.0) Mean Corpuscular Hemoglobin Concent 32.8 G/DL (32.0-36.0) Red Cell Distribution Width 14.6 % (11.6-14.8) Platelet Count 164 K/UL (150-450) Mean Platelet Volume 7.3 FL (6.5-10.1) Neutrophils (%) (Auto) 72.5 % (45.0-75.0) Lymphocytes (%) (Auto) 10.3 % (20.0-45.0) L Monocytes (%) (Auto) 14.8 % (1.0-10.0) H Eosinophils (%) (Auto) 2.0 % (0.0-3.0) Basophils (%) (Auto) 0.5 % (0.0-2.0) Sodium Level 136 MMOL/L (136-145) Potassium Level 4.1 MMOL/L (3.5-5.1) Chloride Level 102 MMOL/L (98-107) Carbon Dioxide Level 27 MMOL/L (21-32) Anion Gap 8 mmol/L (5-15) Blood Urea Nitrogen 21 mg/dL (7-18) H Creatinine 1.4 MG/DL (0.55-1.30) H Estimat Glomerular Filtration Rate mL/min (>60) Glucose Level 107 MG/DL (74-106) H Uric Acid 6.9 MG/DL (2.6-7.2) Calcium Level 8.2 MG/DL (8.5-10.1) L Phosphorus Level 3.0 MG/DL (2.5-4.9) Magnesium Level 2.1 MG/DL (1.8-2.4) Total Bilirubin 0.4 MG/DL (0.2-1.0) Aspartate Amino Transf (AST/SGOT) 49 U/L (15-37) H Alanine Aminotransferase (ALT/SGPT) 32 U/L (12-78) Alkaline Phosphatase 234 U/L (46-116) H Troponin I 3.178 ng/mL (0.000-0.056) Pro-B-Type Natriuretic Peptide 3971 pg/mL (0-125) H Total Protein 6.6 G/DL (6.4-8.2) Albumin 2.5 G/DL (3.4-5.0) L Globulin 4.1 g/dL Albumin/Globulin Ratio 0.6 (1.0-2.7) L Wound: clean, dry, intact Drains: none Neuro Status: normal Vascular Status: normal Additional Comments xray reviewed. small stable femur fracture distal to tip of the nail. Assessment Post-op Diagnosis POD 1 Procedure Performed left hip ORIF with small stable femur fracture distal to nail Plan Plan: PT - 50% WB x6 weeks. , discharge plan - will need rehab. f/u Dr. Goncalves as outpt. Mamie Stephens Jan 31, 2019 08:20
--- NOTE | 2019-01-31 08:25 | NUR ---
NURSE NOTES: Spoke to and new order received. Order read back and carried out.
[2019-01-31] MEDS: Pantoprazole Inj IVP SCH ×2 (08:33→20:46)
[2019-01-31] MEDS: Docusate 100mg cap ORAL SCH ×3 (08:33→17:54)
--- NOTE | 2019-01-31 09:31 | Diagnostic Imaging Report ---
Indication: Abnormal renal function tests Technique: Grayscale and duplex images of the kidneys, retroperitoneum, and bladder were obtained. Comparison: none Findings: Right kidney measures 9.9 cm in length. Left kidney measures 10 point cm in length. Both kidneys demonstrate normal echogenicity. No hydronephrosis. Possible calculi are seen in the left renal sinus and possibly in the left renal parenchyma.. Normal inferior vena cava. Bladder is distended, volume calculated at 479 mL. The posterior wall is heavily trabeculated. Prostate volume calculated at 38 mL. Calcifications are seen within the prostate parenchyma Impression: Negative for hydronephrosis Possible nonobstructive left renal calyceal calculi and possible intraparenchymal calcification Distended bladder. Heavy posterior trabeculation raises concern for chronic bladder outlet obstruction Mildly enlarged prostate, volume 38 mL.
--- NOTE | 2019-01-31 09:32 | Diagnostic Imaging Report ---
Indication: Postoperative, left hip pain and fracture Technique: One view of the pelvis Comparison: Left hip radiograph 01/28/2019 Findings: interim repair of previously demonstrated left hip intertrochanteric fracture with compression screw and medullary wilfrid. Fracture fragments appear well aligned. There is a Lake catheter in place. Small amount of retained air from the surgical exposure is seen in the soft tissues. Small bone island is seen in the right femoral intertrochanteric region. Impression: Postoperative left hip. No unusual features
--- NOTE | 2019-01-31 09:32 | Diagnostic Imaging Report ---
Indications: Postoperative Technique: Two views of the left femur Comparison: 01/28/2019 Findings: Surgical hardware seen reducing left hip intertrochanteric fracture. There is a lucency overlying the distal medullary wilfrid, extending distal to it along the femoral shaft consistent with a nondisplaced fracture. Anchoring screw in the mid shaft femur is outside of the medullary wilfrid. Impression: Postoperative left femur, findings as noted.
--- NOTE | 2019-01-31 09:32 | Diagnostic Imaging Report ---
INDICATION: Pain, intraoperative TECHNIQUE: Intraoperative imaging Fluoroscopy time: 59.6 seconds Total dose: 6 0.26049 mGym2 Total number of images: 6 COMPARISON: 01/28/2019 FINDINGS: Intraoperative images document surgical repair of previously demonstrated left hip intertrochanteric fracture using medullary wilfrid and compression screw IMPRESSION: Intraoperative imaging, as described
--- NOTE | 2019-01-31 10:53 | NUR ---
NURSE NOTES: Called and left massage regarding new troponin level. Waiting for call back and will follow up.
--- NOTE | 2019-01-31 11:00 | NUR ---
PT NOTE: Received MD order for PT evaluation. Balaji PRO requesting to defer PT evaluation at this time due to elevated Troponin. Balaji PRO will discuss with MD regarding clearance for PT. Will follow up in p.m.
[2019-01-31] MEDS ORDERED: COSOPT EYE DROP10 M1 OP (11:44)
[2019-01-31] MEDS ORDERED: LATANOPROST2.5 ML BOTH EYES (11:44)
[2019-01-31 12:00] VITALS: BP 91/53
--- NOTE | 2019-01-31 12:29 | NUR ---
NURSE NOTES: No call back from . Called again and left massage regarding new troponin level. Waiting for call back.
--- NOTE | 2019-01-31 13:13 | Operative Note - Dictated ---
DATE OF OPERATION: 01/29/2019 ORTHOPEDIC OPERATIVE REPORT: PREOPERATIVE DIAGNOSIS: Left hip intertrochanteric fracture from a fall. POSTOPERATIVE DIAGNOSES: 1. Left hip intertrochanteric fracture after a fall. 2. Nondisplaced small fracture distal to the nail that was inserted just seen on AP, was not seen on the lateral. PROCEDURE: Left hip open reduction and internal fixation using a short 125-degree gamma nail with 100 mm lag screw. SURGEON: Ramesh Goncalves M.D. SHIFT SUPERVISOR FILM PROCESSING: Mamie Stephens PA-C. ANESTHESIOLOGIST: Mame Phillips M.D. ANESTHESIA: Spinal anesthesia. EBL: Less than 30 mL. COMPLICATIONS: It should be noted that during the nail insertion, the nail was tight. As the nail was being malleted in, a small nondisplaced 3 cm fracture line could be identified on AP. On the lateral view, both on oblique and lateral view, this could not be seen. It was felt that this fracture is stable. Also, during the distal screws insertion, the screw stripped posteriorly. Multiple attempts were made to remove the screw and the screw had stripped because it had incarcerated between the nail and the bone. Therefore, it was felt to leave the screw in. BRIEF HISTORY: The patient is a pleasant 78-year-old gentleman who sustained a mechanical fall and had a left-sided hip fracture. He was evaluated and was cleared preoperatively. After full discussion of risks and benefits of surgery and complications associated with it including infection, bleeding, neurovascular complication, possibility of malunion, possibility of nonunion, possible need for hardware removal, possible need for further surgery, possibility of femoral fracture during insertion, possibility of DVT and pulmonary emboli, he opted for surgical treatment as described above. OPERATIVE PROCEDURE: The patient was brought to the operative table and was placed supine. All pressure points well padded. Spinal anesthesia was induced and the patient was placed on a fracture table. The left leg was placed in traction and the right leg was placed in a well leg [place]. The patient was secured. All pressure points well padded. At this point, image intensifier was brought in and the fracture was reduced anatomically. At this point, the left leg was prepped and draped in usual sterile fashion. A standard 3 cm incision was made just proximal to the greater trochanter. A guidewire was then placed through the greater trochanter going into the shaft of the femur. Once this was completed and this was viewed on AP and lateral and appeared to be in good position, proximal reaming was performed. Once the proximal reaming was completed, a 125 degree nail was then put in initially by hand until it stopped moving distally. At this point, using a [employer]one[employer] plate, the nail was hit lightly to allow advancement. The nail did advance up to acceptable position, although this was tight. At this point, x-rays were obtained and a small nondisplaced fracture line could be identified on the AP view only. This was viewed on the lateral, the fracture could not be seen. Due to the fact that it was felt that this was a nondisplaced and noncircumferential fracture and the fact that the nail was already in and further removal of the nail with reversed malleting could possibly displace this fracture, a decision was made to leave the nail in bone with fixation due to the fact that there was a high percentage of this fracture will go onto healing with partial weightbearing. At this point, the guidewire was placed through the lateral cortex into the nail into the neck and head. This was approximately 2 mm more superiorly than that would be ideal. However, considering the small nondisplaced fracture distally, a decision was made to leave it in that position. On the lateral view, this was in a center-center position. At this point, the measurements were made. A 100 mm lag screw appeared to be the right lag screw. The step drill was used to drill the site of the lag screw and a 100 mm lag screw was placed without any complication. At this point, the locking screw was locked in and backed up by half a turn. At this point, a decision to make a distal screw fixation was made. Using the guide, the distal screw was drilled. This was done on AP and appeared to be in good position. The screw was then placed in and it was tight. This appeared to be well seated. Subsequently, on AP looked perfect. On the lateral view however, the screw was posterior. At this point, the screwdriver was applied back on the screw and tried to back it out. However, the screw was incarcerated between the bone and the nail and the head of the screw was stripped. At this point, a decision was made to leave the screw as this fracture was going on to healing, the hardware will not need to be removed down the line. Furthermore, in order to remove the screw, a bigger incision and significant soft tissue dissection had to be made in order to capture the screw with a screw removal set and remove it. Therefore, a decision was made not to proceed due to the fact that this fracture has a high probability of going on healing without any complications. At this point, wounds were thoroughly irrigated using copious amount of fluid. The final x-rays were obtained and all hardware appeared to be in excellent position except distal screw, which was posterior to the nail. This fracture appeared to have a very stable configuration. Furthermore, not having a distal screw would not have changed the stability of this fracture at this point. Wounds were thoroughly irrigated using copious amount of fluid. The tensor fascia was closed using #1 Vicryl suture. Subcutaneous tissue was closed using 2-0 Vicryl suture. Skin was closed using 3-0 Monocryl suture. All lap counts and instrument counts were correct. Postoperative x-rays will be obtained and the patient will be kept on 50% weightbearing for the next 6 weeks to allow the fractures to consolidate prior to proceeding with full weightbearing. The patient was taken to recovery room in stable condition. Ramesh Goncalves M.D. DR: AFSHAN JOB#: [id number] CC:
--- NOTE | 2019-01-31 13:13 | Consultation ---
DATE OF CONSULTATION: 01/30/2019 ORTHOPEDIC CONSULTATION CONSULTING PHYSICIAN: Ramesh Goncalves M.D. HISTORY OF PRESENT ILLNESS: The patient is a 78-year-old male who is homeless and had a mechanical fall on the sidewalk on Monday. He remained on the ground and he could not stand up. He is on the sidewalk, complaining of left hip pain. He was transferred to [facility] where he was noted to have a left hip intertrochanteric fracture. Orthopedic consult has been called for surgical intervention. PAST MEDICAL HISTORY: None. PAST SURGICAL HISTORY: None. CURRENT MEDICATIONS: See chart. ALLERGIES: None. SOCIAL HISTORY: The patient is homeless. He is independent with activities. REVIEW OF SYSTEMS: Negative. PHYSICAL EXAMINATION: He has left hip pain and tenderness. No sign of skin breakdown or infection. He is neurovascularly intact. He is alert and oriented. Answering questions. He is mainly Kiswahili speaking and is seen with an eye dropper assembler. DIAGNOSTIC DATA: X-rays are reviewed. X-ray of the hip and pelvis showed a left hip intertrochanteric fracture. IMPRESSION: Left hip intertrochanteric fracture after a fall. DISCUSSION: At this time, I discussed with the patient my findings. We will forward with left hip open reduction and internal fixation to stabilize this and he is in agreement. Nature of the surgery was discussed with him including what is involved with surgery itself as well as rehab and recovery. He understands the risks of surgery, nerve injury, vessel injury, risk of infection, bleeding, risk of DVT and PE, fracture, hardware failure, need for revision surgery down the line were all discussed. I will likely need usp following hospitalization and we will ask case management to assist in setting that up. Ramesh Goncalves M.D. Jessica Terrell DR: DUANE JOB#: [id number] CC:
--- NOTE | 2019-01-31 13:14 | Consultation ---
DATE OF CONSULTATION: 01/30/2019 PHYSICAL MEDICINE REHABILITATION CONSULTATION REQUESTING PHYSICIAN: Guille Stephen M.D. ORTHOPEDIC SURGEON: Robbin Goncalves M.D. MEDICAL OFFICE SUPERVISOR: Denver Weiss M.D. CHIEF COMPLAINT: Difficulty with ambulation activity of daily living in a patient with left hip intertrochanteric fracture status post open reduction and internal fixation. HISTORY OF PRESENT ILLNESS: The patient is a 78-year-old male, originally from [facility] who was in a modified independent level of function, living at his apartment alone. However, ability of ambulation with single-point cane and modified independent for the past 5 years, was walking down the sidewalk next to his building and had a trip and fall, landed on his left side. He experienced severe pain. He called paramedics. The patient was taken to [place] [facility] room and x-rays showed left hip intertrochanteric fracture. He was taken to the operation room, underwent open reduction and internal fixation of the left hip on January 30, [address] Goncalves. The patient also showed evidence of acute kidney injury with creatinine of 1.7 on admission, which was seen by district customs director. Also, elevated liver function tests and proBNP of over 2700 reported, as well as elevated TSH level. I was asked today to evaluate the patient for rehabilitation. The patient's urinalysis showed evidence of 40 to 60 red blood cells. Urine culture was negative. Instruction by orthopedic surgeon is being partial weightbearing, 50% weightbearing for 6 weeks on the left lower limb. I was asked to evaluate the patient for rehabilitation. The patient has significant drop on his level of function, difficulty with gait and activities of daily living. PAST MEDICAL HISTORY: Hypertension. ALLERGIES: No known drug allergy. MEDICATIONS: Lovenox 40 mg subcutaneous daily, iron intravenous daily, cefazolin intravenous every 8 hours, Tylenol as needed, Synthroid 25 mcg by mouth daily, Protonix 40 mg intravenous every 12 hours, Colace 100 mg 3 times a day, D50 as needed, Tylenol as needed, Romulus as needed, morphine as needed. FAMILY AND SOCIAL HISTORY: The patient is single. However, he has a daughter who lives in [facility]. He lives alone here in [place] in an apartment with three steps to enter by himself alone. He was in a modified independent level of function of his prior level of function for ambulation and activity of daily living with usage of a single-point cane. No physical therapy evaluated the patient yet. However, I did a quick bedside exam. He needs significant amount of help for bed mobility. The patient denies history of alcohol, tobacco, or illicit drugs. Denies any significant family medical history. The patient is retired. He used to be a rn orthopaedic. The patient has a nephew that helps the patient as much as he needs. REVIEW OF SYSTEMS: CONSTITUTIONAL: No chills or fever. EYES: Denies diplopia. EAR, NOSE, AND THROAT: Denies dysphagia. CARDIOVASCULAR: No chest pain. PULMONARY: No shortness of breath. GASTROINTESTINAL: No abdominal pain. GENITOURINARY: No dysuria, hematuria. MUSCULOSKELETAL: Left hip fracture post surgery. INTEGUMENTARY: No cancerous lesion. NEURO: The patient denies spasm, tics, or numbness. PHYSICAL EXAMINATION: VITAL SIGNS: Blood pressure 105/58, respiratory rate 20 per minute, heart rate 73 per minute, temperature 98 degrees Fahrenheit, O2 saturation 98%. Height is 167 centimeters, weight is 69 kg. Body mass index 25. GENERAL: No acute distress. HEENT: Extraocular movements are intact. Neck supple with no lymphadenopathy. Pulse, bilateral carotid femoral and dorsalis pedis palpable. HEART: Regular rhythm and rate. LUNGS: Clear to auscultation bilateral. ABDOMEN: Soft, nontender, nondistended. Normal bowel sounds with no palpable abnormal mass. EXTREMITIES: Left knee postoperative with dressing. No calf tenderness. No pitting edema. No calf tenderness. No clubbing or cyanosis. Left hip postoperative with a large dressing. SKIN: No rashes. NEUROLOGIC: The patient is alert, awake, and oriented. Movement of bilateral upper and right lower limb antigravity. Movement of left ankle dorsiflexion, extensor hallucis longus 4/5 to 5/5. Sensation grossly intact to light touch. DATA: WBC 8.5, hemoglobin 10.3, platelets 190. Sodium 136, potassium 4.2, BUN 26, creatinine 1.4, glucose 89. Phosphorus and magnesium 2.4 and 1.4. Iron 28, saturation 13%. GGT 439, AST 38. ProBNP 2400. TSH 5.525. Echocardiogram, ejection fraction 55%. ASSESSMENT: A 78-year-old male originally from [facility] status post mechanical fall, trip and fall at the sidewalk of his apartment with; 1. Left hip intertrochanteric fracture/proximal femoral neck fracture status post open reduction and internal fixation by Dr. Goncalves on January 30, 2019. Partial weightbearing. 2. pain. 3. Gait abnormality. 4. Debility and functional decline. 5. Acute kidney injury. 6. Anemia. 7. Microhematuria. 8. Iron deficiency. 9. Electrolyte imbalance. 10. Elevated liver function tests. 11. Elevated proBNP with ejection fraction of 50%, questionable mild congestive heart failure. 12. Hypothyroidism, newly diagnosed. 13. Hypertension. 14. Anemia. RECOMMENDATION: This patient requires acute inpatient rehabilitation placement. The patient is medically and surgically stable and cleared. The patient needs physical therapy, occupational therapy, and 24 hours nursing care. Physical therapy for range of motion, transfer training, endurance, balance and gait training, fall prevention with appropriate assistive device. Occupational therapy for activities of daily living, equipment function, and transfer evaluation and training. Upper extremity range of motion and strengthening exercise. Nursing for evaluation of his bowel and bladder, medication regimen, skin care prevention of pressure ulcer, patient and family education. The patient has a nephew that is helping him as much as he needs. Fall precaution, pressure ulcer precaution, cardiac precaution. Incentive spirometer. Nutritional support. Monitor his bowel and bladder. Skin care and dressing change. Nephrology management, Nephrology is following. Electrolyte imbalance, per district customs director adjust. Acute inpatient rehabilitation placement and the patient is cleared by primary care physician. Continue medical and surgical management per medical and surgical team. Thank you for your consultation. Robbin Best M.D. DR: Yevgeniy JOB#: [id number] CC:
--- NOTE | 2019-01-31 13:44 | 48 Hour Post Anesthesia Eval ---
Post Anesthesia Evaluation Procedure: Left hip ORIF Date of Evaluation: Jan 31, 2019 Time of Evaluation: 13:41 Blood Pressure Systolic: 95 0: 56 Pulse Rate: 72 Respiratory Rate: 20 Temperature (Fahrenheit): 97.6 O2 Sat by Pulse Oximetry: 98 Airway: patent Nausea: No Vomiting: No Pain Intensity: 2 Hydration Status: adequate Cardiopulmonary Status: stable no chest pain, elevated troponin internal medicine cardiology to follow Mental Status/LOC: patient returned to baseline Follow-up Care/Observations: n/a Post-Anesthesia Complications: none Follow-up care needed: N/A Peter Aiken MD Jan 31, 2019 13:44
--- NOTE | 2019-01-31 14:28 | NUR ---
PT NOTE: Patient with order to transfer to [facility], PT discontinued at this time. Balaji PRO notified that an MD order to resume PT will be needed due to patient's transfer to [facility].
--- NOTE | 2019-01-31 14:31 | General Progress Note ---
Assessment/Plan Assessment/Plan S: I am ok O: denies any severe pain , left sided hip pain is well managed PHYSICAL EXAMINATION:HEAD AND NECK: Atraumatic and normocephalic. CHEST: Clear to auscultation.HEART: S1, S2. Regular rate and rhythm. ABDOMEN: Soft. No organomegaly.MUSCULOSKELETAL: post op changes in left hip noted. Positive for decreased range of motion on the left lower extremity.NEUROLOGY: The patient is awake, alert, oriented x3. Meds: reviewed and reconciled in chart ASSESSMENT AND PLAN: 1. Acute left-sided intertrochanteric fracture secondary to mechanical fall. 2. Troponin Rise post Op. NSTEMI ?!, troponin leakage 2. Hypothyroidism. 3. Abnormal LFT. 4. Renal failure - age indeterminate. 5. Gastrointestinal and DVT prophylaxes. PLAN OF CARE: Will transfer to [facility] Discussed and consulted with Dr Carvalho will monitor Troponin level Subjective Allergies: Coded Allergies: No Known Allergies (Unverified , 01/28/19) Objective Last 24 Hour Vital Signs Date Time Temp Pulse Resp B/P (MAP) Pulse Ox O2 Delivery O2 Flow Rate FiO2 01/31/19 13:44 72 20 98 01/31/19 12:00 98.8 73 20 91/53 (66) 96 01/31/19 11:00 99.3 01/31/19 09:00 Room Air 01/31/19 08:00 101.1 79 20 97/57 (70) 95 01/31/19 04:00 98.3 70 18 91/52 (65) 95 01/31/19 01:01 99.6 01/31/19 01:01 99.6 01/30/19 23:52 101.3 80 18 95/62 (73) 98 01/30/19 21:00 Room Air 01/30/19 20:00 102.2 102 17 91/61 (71) 95 01/30/19 16:00 101.1 98 20 124/72 (89) 100 Intake and Output 01/30/19 01/31/19 19:00 07:00 Intake Total 2200 ml 1030 ml Output Total 855 ml 950 ml Balance 1345 ml 80 ml Intake Oral 1000 ml 480 ml IV Total 1200 ml 550 ml Output Urine Total 825 ml 950 ml Estimated Blood Loss 30 ml Laboratory Tests 01/31/19 04:50: White Blood Count 10.0, Red Blood Count 3.13L, Hemoglobin 9.2L, Hematocrit 28.1L , Mean Corpuscular Volume 90, Mean Corpuscular Hemoglobin 29.5, Mean Corpuscular Hemoglobin Concent 32.8, Red Cell Distribution Width 14.6, Platelet Count 164, Mean Platelet Volume 7.3, Neutrophils (%) (Auto) 72.5, Lymphocytes (% ) (Auto) 10.3L, Monocytes (%) (Auto) 14.8H, Eosinophils (%) (Auto) 2.0, Basophils (%) (Auto) 0.5, Sodium Level 136, Potassium Level 4.1, Chloride Level 102, Carbon Dioxide Level 27, Anion Gap 8, Blood Urea Nitrogen 21H, Creatinine 1.4H, Estimat Glomerular Filtration Rate , Glucose Level 107H, Uric Acid 6.9, Calcium Level 8.2L, Phosphorus Level 3.0, Magnesium Level 2.1, Total Bilirubin 0.4, Aspartate Amino Transf (AST/SGOT) 49H, Alanine Aminotransferase (ALT/SGPT) 32, Alkaline Phosphatase 234H, Troponin I 3.178H, Pro-B-Type Natriuretic Peptide 3971H, Total Protein 6.6, Albumin 2.5L, Globulin 4.1, Albumin/Globulin Ratio 0.6L 01/31/19 09:45: Troponin I 2.373H Height (Feet): 5 Height (Inches): 6.00 Weight (Pounds): 153 Guille Stephen MD Jan 31, 2019 14:31
[2019-01-31] MEDS ORDERED: D5NS 1000ml IV ONE (14:56)
[2019-01-31] MEDS ORDERED: Tubing IV Secondary IV ONE (14:56)
--- NOTE | 2019-01-31 14:57 | Nephrology Progress Note ---
Assessment/Plan Problem List: (1) Renal failure (ARF), acute on chronic (2) Hyponatremia (3) Intertrochanteric fracture of left hip (4) Iron deficiency anemia (5) Troponin level elevated Assessment Acute Renal failure Cr lower with hydration ? Underlying CKD Fall, Left Hip fx Anemia low Iron Hyponatremia improving Plan post hip surgery, per ortho cardiology advise for acute rise of Troponin Slow Hydrate with Isotonic solution Stool Softner IV Iron Urine studies monitor renal parameters per orders Subjective ROS Limited/Unobtainable: No Objective Objective Last 24 Hour Vital Signs Date Time Temp Pulse Resp B/P (MAP) Pulse Ox O2 Delivery O2 Flow Rate FiO2 01/31/19 13:44 72 20 98 01/31/19 12:00 98.8 73 20 91/53 (66) 96 01/31/19 11:00 99.3 01/31/19 09:00 Room Air 01/31/19 08:00 101.1 79 20 97/57 (70) 95 01/31/19 04:00 98.3 70 18 91/52 (65) 95 01/31/19 01:01 99.6 01/31/19 01:01 99.6 01/30/19 23:52 101.3 80 18 95/62 (73) 98 01/30/19 21:00 Room Air 01/30/19 20:00 102.2 102 17 91/61 (71) 95 01/30/19 16:00 101.1 98 20 124/72 (89) 100 Intake and Output 01/30/19 01/31/19 18:59 06:59 Intake Total 2200 ml 1030 ml Output Total 855 ml 950 ml Balance 1345 ml 80 ml Intake Oral 1000 ml 480 ml IV Total 1200 ml 550 ml Output Urine Total 825 ml 950 ml Estimated Blood Loss 30 ml Laboratory Tests 01/31/19 04:50: White Blood Count 10.0, Red Blood Count 3.13L, Hemoglobin 9.2L, Hematocrit 28.1L , Mean Corpuscular Volume 90, Mean Corpuscular Hemoglobin 29.5, Mean Corpuscular Hemoglobin Concent 32.8, Red Cell Distribution Width 14.6, Platelet Count 164, Mean Platelet Volume 7.3, Neutrophils (%) (Auto) 72.5, Lymphocytes (% ) (Auto) 10.3L, Monocytes (%) (Auto) 14.8H, Eosinophils (%) (Auto) 2.0, Basophils (%) (Auto) 0.5, Sodium Level 136, Potassium Level 4.1, Chloride Level 102, Carbon Dioxide Level 27, Anion Gap 8, Blood Urea Nitrogen 21H, Creatinine 1.4H, Estimat Glomerular Filtration Rate , Glucose Level 107H, Uric Acid 6.9, Calcium Level 8.2L, Phosphorus Level 3.0, Magnesium Level 2.1, Total Bilirubin 0.4, Aspartate Amino Transf (AST/SGOT) 49H, Alanine Aminotransferase (ALT/SGPT) 32, Alkaline Phosphatase 234H, Troponin I 3.178H, Pro-B-Type Natriuretic Peptide 3971H, Total Protein 6.6, Albumin 2.5L, Globulin 4.1, Albumin/Globulin Ratio 0.6L 01/31/19 09:45: Troponin I 2.373H Height (Feet): 5 Height (Inches): 6.00 Weight (Pounds): 153 General Appearance: no apparent distress Cardiovascular: normal rate Respiratory/Chest: decreased breath sounds Abdomen: soft Genitourinary/Rectal: other - miranda + Denver Weiss MD Jan 31, 2019 14:57
--- NOTE | 2019-01-31 15:00 | NUR ---
NURSE NOTES: Patient transferred to [facility]. Given report to Hannah PRO. Patient in stable condition. Belonging checked with Hannah PRO. Notified that patient in [phone].
--- NOTE | 2019-01-31 15:01 | NUR ---
NURSE NOTES: RECEIVED PATIENT FROM Flor GAMEZ RN. PATIENT IS LYING IN BED, RESTING. RESPONSIVE. HOOKED TO AIR TRAFFIC SYSTEMS TECHNICIAN. ON ROOM AIR. NO SIGNS OF DISTRESS. NOTED PATHAK WITH ORDER TO DC. NOTED SURGICAL WOUND, DRY AND INTACT. IV ON R HAND G20, WITH IVF RUNNING 1/2 NS AT 50CC/HR. CALL LIGHT WITHIN REACH. BED AT LOWEST POSITION. SIDE RAILS UP. WILL CONTINUE TO MONITOR.
[2019-01-31] MEDS ORDERED: Morphine Sulfate 2mg/ml Inj(IV/IM USE ONLY) IVP PRN (15:26)
--- NOTE | 2019-01-31 15:58 | Cardiac Electrophysiology PN ---
Subjective Subjective [id number] Objective Last 24 Hour Vital Signs Date Time Temp Pulse Resp B/P (MAP) Pulse Ox O2 Delivery O2 Flow Rate FiO2 01/31/19 13:44 72 20 98 01/31/19 12:00 98.8 73 20 91/53 (66) 96 01/31/19 11:00 99.3 01/31/19 09:00 Room Air 01/31/19 08:00 101.1 79 20 97/57 (70) 95 01/31/19 04:00 98.3 70 18 91/52 (65) 95 01/31/19 01:01 99.6 01/31/19 01:01 99.6 01/30/19 23:52 101.3 80 18 95/62 (73) 98 01/30/19 21:00 Room Air 01/30/19 20:00 102.2 102 17 91/61 (71) 95 01/30/19 16:00 101.1 98 20 124/72 (89) 100 Intake and Output 01/30/19 01/31/19 19:00 07:00 Intake Total 2200 ml 1030 ml Output Total 855 ml 950 ml Balance 1345 ml 80 ml Intake Oral 1000 ml 480 ml IV Total 1200 ml 550 ml Output Urine Total 825 ml 950 ml Estimated Blood Loss 30 ml Laboratory Tests Test 01/31/19 04:50 01/31/19 09:45 White Blood Count 10.0 K/UL (4.8-10.8) Red Blood Count 3.13 M/UL (4.70-6.10) L Hemoglobin 9.2 G/DL (14.2-18.0) L Hematocrit 28.1 % (42.0-52.0) L Mean Corpuscular Volume 90 FL (80-99) Mean Corpuscular Hemoglobin 29.5 PG (27.0-31.0) Mean Corpuscular Hemoglobin Concent 32.8 G/DL (32.0-36.0) Red Cell Distribution Width 14.6 % (11.6-14.8) Platelet Count 164 K/UL (150-450) Mean Platelet Volume 7.3 FL (6.5-10.1) Neutrophils (%) (Auto) 72.5 % (45.0-75.0) Lymphocytes (%) (Auto) 10.3 % (20.0-45.0) L Monocytes (%) (Auto) 14.8 % (1.0-10.0) H Eosinophils (%) (Auto) 2.0 % (0.0-3.0) Basophils (%) (Auto) 0.5 % (0.0-2.0) Sodium Level 136 MMOL/L (136-145) Potassium Level 4.1 MMOL/L (3.5-5.1) Chloride Level 102 MMOL/L (98-107) Carbon Dioxide Level 27 MMOL/L (21-32) Anion Gap 8 mmol/L (5-15) Blood Urea Nitrogen 21 mg/dL (7-18) H Creatinine 1.4 MG/DL (0.55-1.30) H Estimat Glomerular Filtration Rate mL/min (>60) Glucose Level 107 MG/DL (74-106) H Uric Acid 6.9 MG/DL (2.6-7.2) Calcium Level 8.2 MG/DL (8.5-10.1) L Phosphorus Level 3.0 MG/DL (2.5-4.9) Magnesium Level 2.1 MG/DL (1.8-2.4) Total Bilirubin 0.4 MG/DL (0.2-1.0) Aspartate Amino Transf (AST/SGOT) 49 U/L (15-37) H Alanine Aminotransferase (ALT/SGPT) 32 U/L (12-78) Alkaline Phosphatase 234 U/L (46-116) H Troponin I 3.178 ng/mL (0.000-0.056) 2.373 ng/mL (0.000-0.056) Pro-B-Type Natriuretic Peptide 3971 pg/mL (0-125) H Total Protein 6.6 G/DL (6.4-8.2) Albumin 2.5 G/DL (3.4-5.0) L Globulin 4.1 g/dL Albumin/Globulin Ratio 0.6 (1.0-2.7) L Microbiology Date/Time Source Procedure Growth Status 01/29/19 19:54 Indwelling Cath Urine Culture - Preliminary Staphylococcus Aureus Mixed Gram Positive Organism Resulted Kirby Paiz MD Jan 31, 2019 15:58
[2019-01-31 16:00] VITALS: BP 102/56
--- NOTE | 2019-01-31 16:46 | NUR ---
Social Service Note TENA spoke with Margi at [facility] transfer Center [phone] and confirmed transfer tomorrow 02/01. ACLS transportation arranged with [employer], [phone], bean picker time at 11:15am. [address] [place] [address] [address] Pre-Op Bed assignment will be provided once nurse giving report at 10:30am to [phone]. Procedure scheduled for 1400. TENA informed patient's dgt Madeleine Colin [phone] of impending transfer. TENA discussed with charge nurse. Addendum: 01/31/19 at 1659 by ARIEL RAZA This note was entered in error. Please disregard.
--- NOTE | 2019-01-31 16:59 | NUR ---
*-* DISCHARGE PLANNING *-* PATIENT HAS BEEN REFERRED TO: [facility] P:[phone] F:[phone]
[2019-01-31] MEDS ORDERED: Cosopt Opth Soln 10 mL Btl BOTH EYES SCH (18:00)
--- NOTE | 2019-01-31 19:23 | NUR ---
HAND-OFF: Report given to MORTEZA Reyna.
--- NOTE | 2019-01-31 19:40 | NUR ---
NURSE NOTES: PATIENT ALERT, ORIENTED, DENIED SEVERE PAIN OR DISTRESS AT THIS TIME, RESPIRATION REGULAR, NO COB NOTED, ABDOMEN SOFT, NO BOWEL MOVEMENT TODAY, NO BLADDER DISTENDED, PROVIDED URINAL AT BEDSIDE. LEFT HIP SURGERY SITE CLEANED, DRIED WOUND DRESSING STATUS, IS AT BEDSIDE, ABLE TO KNOW HOW TO USE IS, PERIPHERAL LINE TO RIGHT HAND 20G, INTACT AND PATENT, GOOD BLOOD RETURN, ON D5W 1/2 NS AT 50ML/HR , MADE LOWER BED POSITION, PROVIDED CALL LIGHT WITHIN REACH, WILL CONTINUE TO MONITOR.
[2019-01-31 20:00] VITALS: BP 102/60
[2019-01-31] MEDS: HYDROcodone/Acetamin 5/325 tab ORAL PRN (20:47)
--- NOTE | 2019-01-31 20:47 | NUR ---
NURSE NOTES: GIVEN NORCO 5/325MG BY PO FOR RIGHT HIP PAIN OF 5/10 PRN ORDERED, WILL CONTINUE TO MONITOR.
[2019-01-31] MEDS: Metoprolol Tartrate 12.5mg TAB ORAL SCH (20:48)
[2019-01-31] MEDS: Enoxaparin 40mg Inj SUBQ SCH (20:50)
[2019-01-31] MEDS: Latanoprost 0.005% Opth 2.5ml Soln BOTH EYES SCH (20:51)
[2019-01-31] MEDS: Cosopt Opth Soln 10 mL Btl BOTH EYES SCH (20:51)
[2019-01-31] MEDS ORDERED: Latanoprost 0.005% Opth 2.5ml Soln BOTH EYES SCH (21:00)
[2019-01-31] MEDS ORDERED: Enoxaparin 40mg Inj SUBQ SCH (21:00)
[2019-01-31] MEDS ORDERED: Iron Sucrose 100 MG in NS 55 ML IV SCH (21:00)
[2019-01-31] MEDS: Iron Sucrose 100 MG in NS 55 ML IV SCH (21:40)
--- NOTE | 2019-01-31 23:00 | Consultation ---
DATE OF CONSULTATION: 01/31/2019 CARDIOLOGY CONSULTATION CONSULTING PHYSICIAN: Kirby Paiz M.D. REFERRING PHYSICIAN: Guille Stephen M.D. REASON FOR CONSULTATION: Non-ST elevation myocardial infarction. HISTORY OF PRESENT ILLNESS: The patient is a very pleasant 78-year-old gentleman with history of hypertension, originally from [facility], has been walking on the sidewalk next to his building, had a trip and fall, landed on his left side, has severe pain. The patient was taken to [place] [facility] and was found to have a left hip intertrochanteric fracture. The patient subsequently was taken to the OR and underwent internal fixation of left hip on January 30, [address] Goncalves. The patient also had elevated creatinine of 1.7 and BNP of 2700. He had undergone an echocardiogram on January 29, 2019 that showed normal left ventricular systolic function with ejection fraction of 55%. The patient's initial troponin was negative; however, postop troponin was elevated more than 3. I was consulted today for further evaluation of elevated troponin. His EKG was obtained at 7:40 in the morning that shows sinus rhythm with first-degree block plus inferolateral ST depression suggestive of injury. The patient, however, denies any chest pain, palpitation, shortness of breath. Pain is only at the site of surgery. REVIEW OF SYSTEMS: Review of systems was negative other than what was mentioned in the history of present illness. PAST MEDICAL HISTORY: As mentioned above. FAMILY HISTORY: Noncontributory. SOCIAL HISTORY: Denies smoking or drinking alcohol. PHYSICAL EXAMINATION: VITAL SIGNS: Show blood pressure of 91/53, pulse 73, respirations 18, and temperature 98.8. Initial temperature 101.1. HEAD AND NECK: Showed no JVD. LUNGS: Clear. CARDIOVASCULAR: Regular S1 and S2 with no gallop or murmur. ABDOMEN: Soft. EXTREMITIES: No pitting edema. Status post left hip surgery. LABORATORY AND DIAGNOSTIC DATA: EKG as mentioned above. Labs show troponin initially was 0.028; however, subsequent troponin today was 3.178 at 4:50 a.m. and at 9:45 with 2.373. His sodium is 136, potassium 4.1, BUN of 21, creatinine 1.4, glucose of 107. Alkaline phosphatase 234. BNP is 3971. White count is 10, hemoglobin 9.2, hematocrit 28.1, and platelet count 164,000. INR is 1. ASSESSMENT AND PLAN: 1. Non-ST elevation myocardial infarction with inferolateral ischemia on the EKG as well as troponin elevation that went up from negative to 1 or 2. Troponin now is 2. The patient does not have any chest pain or shortness of breath. I will put the patient on aspirin and beta-marii if he is able to tolerate it as blood pressure is in the 90s. I will add statin to his medical regimen, but with the lower dose in view of elevated CPK, but due to fall. Repeat EKG and troponin in the morning. After stabilization, the patient likely would need cardiac catheterization for further evaluation of his coronaries. 2. Hypotension. Blood pressure currently borderline, but I will start low-dose beta-marii in view of non-ST elevation NE. 3. Renal failure. Creatinine on admission was 2.1, but gradually has come down to 1.4 now. The patient off ADALBERTO inhibitor or angiotensin-receptor marii per Dr. Weiss. 4. Status post left hip open reduction and internal fixation. Thank you very much, Dr. Stephen, for allowing me to participate in the care of this patient. Please do not hesitate to contact me for any questions regarding my evaluation. Kirby Paiz M.D. DR: Melissa JOB#: [id number] CC:
--- NOTE | 2019-01-31 23:00 | NUR ---
NURSE NOTES: PATIENT ASLEEP STATUS, WILL CONTINUE PLAN OF CARE.
[2019-02-01] VITALS: BP 98/50
--- NOTE | 2019-02-01 02:10 | NUR ---
NURSE NOTES: NO PAIN OR DISTRESS NOTED AT THIS TIME.
[2019-02-01 04:00] VITALS: BP 101/62
--- NOTE | 2019-02-01 04:00 | NUR ---
NURSE NOTES: PATIENT NO VOIDING STATUS, PATIENT DENIED RETENTION, ENCOURAGED AND PROVIDED URINAL THAT VOIDED 100ML AT THIS TIME, NO BLADDER DISTENTION NOTED, WILL CONTINUE TO MONITOR.
[2019-02-01 05:42] LABS: BASOPHILS % (AUTO) 0.6 % (0.0-2.0); EOSINOPHILS % (AUTO) 4.2 % (0.0-3.0); HEMATOCRIT 27.2 % (42.0-52.0); HEMOGLOBIN 8.9 G/DL (14.2-18.0); LYMPHOCYTES % (AUTO) 13.7 % (20.0-45.0); MEAN CORPUSCULAR VOLUME 90 FL (80-99); MONOCYTES % (AUTO) 13.4 % (1.0-10.0); NEUTROPHILS % (AUTO) 68.2 % (45.0-75.0); PLATELET COUNT 171 K/UL (150-450); RED BLOOD COUNT 3.02 M/UL (4.70-6.10); RED CELL DISTRIBUTION WIDTH 14.5 % (11.6-14.8); WHITE BLOOD COUNT 9.2 K/UL (4.8-10.8)
[2019-02-01] MEDS: Levothyroxine 25mcg tab ORAL SCH (05:48)
--- NOTE | 2019-02-01 07:23 | NUR ---
HAND-OFF: Report given to MORTEZA Vee.
--- NOTE | 2019-02-01 07:43 | NUR ---
NURSE NOTES: Received patient from Flor Reyna RN. Patient is awake and oriented, able to verbalize demands. Patient is on room air, respirations even and unlabored. Encouraged use of incentive spirometry. Condom catheter removed, urinal at bedside. Patient is s/p jean catheter removal. Bladder scan was done with 938ml of urine noted. Reported to Dr. Stephen. Right hand 20 gauge infusing D5NS at 50cc/hr. Bed is locked and placed in lowest position, call light in reach, bed rails up x3. All needs attended to. Will continue to monitor.
[2019-02-01 08:00] VITALS: BP 111/66
[2019-02-01 08:55] LABS: ALANINE AMINOTRANSFERASE 31 U/L (12-78); ALBUMIN 2.4 G/DL (3.4-5.0); ALBUMIN/GLOBULIN RATIO 0.6 (1.0-2.7); ALKALINE PHOSPHATASE 253 U/L (46-116); ANION GAP 6 mmol/L (5-15); ASPARTATE AMINO TRANSFERASE 49 U/L (15-37); BILIRUBIN,TOTAL 0.5 MG/DL (0.2-1.0); BLOOD UREA NITROGEN 20 mg/dL (7-18); CALCIUM 8.5 MG/DL (8.5-10.1); CARBON DIOXIDE 25 MMOL/L (21-32); CHLORIDE 105 MMOL/L (98-107); CREATININE 1.4 MG/DL (0.55-1.30); PHOSPHORUS 2.7 MG/DL (2.5-4.9); POTASSIUM 4.1 MMOL/L (3.5-5.1); SODIUM 136 MMOL/L (136-145)
[2019-02-01] MEDS: Metoprolol Tartrate 12.5mg TAB ORAL SCH (09:00)
[2019-02-01] MEDS: Docusate 100mg cap ORAL SCH ×3 (09:04→18:07)
[2019-02-01] MEDS: Aspirin EC 81mg tab ORAL SCH (09:04)
[2019-02-01] MEDS: Cosopt Opth Soln 10 mL Btl BOTH EYES SCH ×2 (09:04→18:08)
[2019-02-01] MEDS: Pantoprazole Inj IVP SCH (09:05)
[2019-02-01] MEDS: D5NS 1,000 ML IV SCH (09:05)
--- NOTE | 2019-02-01 11:11 | Cardiac Electrophysiology PN ---
Assessment/Plan Assessment/Plan 1. Non-ST elevation myocardial infarction with inferolateral ischemia on the EKG as well as troponin elevation that went up from negative 20 3.1 and now down to 1.3. The patient does not have any chest pain or shortness of breath. On aspirin and beta-marii and statin After stabilization, the patient may need cardiac catheterization for further evaluation of his coronaries. 2. Hypotension. Blood pressure currently low in 80s. DC metoprolol. Give NS 1 liter 3. Renal failure. Creatinine on admission was 2.1, but gradually has come down to 1.4 now. The patient off ADALBERTO inhibitor or angiotensin-receptor marii per Dr. Weiss. 4. Status post left hip open reduction and internal fixation. DW RN Subjective Subjective BP dropped to 80s while asymptomatic. Had T 100.4 earlier. 700 cc drained from Lake Objective Last 24 Hour Vital Signs Date Time Temp Pulse Resp B/P (MAP) Pulse Ox O2 Delivery O2 Flow Rate FiO2 02/01/19 09:00 79 111/66 02/01/19 08:53 97.9 02/01/19 04:17 73 02/01/19 04:00 99.7 76 18 101/62 (75) 95 02/01/19 04:00 Room Air 02/01/19 00:00 100.0 80 20 98/50 (66) 94 02/01/19 00:00 Room Air 01/31/19 23:48 85 01/31/19 20:48 87 102/60 01/31/19 20:00 Room Air 01/31/19 20:00 98.1 87 20 102/60 (74) 94 01/31/19 19:10 85 01/31/19 16:00 99.7 78 18 102/56 (71) 96 01/31/19 13:44 72 20 98 01/31/19 12:00 98.8 73 20 91/53 (66) 96 Intake and Output 01/31/19 02/01/19 19:00 07:00 Intake Total 655 ml 805 ml Output Total 450 ml 100 ml Balance 205 ml 705 ml Intake Oral 480 ml 220 ml IV Total 175 ml 585 ml Output Urine Total 450 ml 100 ml # Voids 1 Laboratory Tests Test 02/01/19 04:44 White Blood Count 9.2 K/UL (4.8-10.8) Red Blood Count 3.02 M/UL (4.70-6.10) L Hemoglobin 8.9 G/DL (14.2-18.0) L Hematocrit 27.2 % (42.0-52.0) L Mean Corpuscular Volume 90 FL (80-99) Mean Corpuscular Hemoglobin 29.4 PG (27.0-31.0) Mean Corpuscular Hemoglobin Concent 32.7 G/DL (32.0-36.0) Red Cell Distribution Width 14.5 % (11.6-14.8) Platelet Count 171 K/UL (150-450) Mean Platelet Volume 6.9 FL (6.5-10.1) Neutrophils (%) (Auto) 68.2 % (45.0-75.0) Lymphocytes (%) (Auto) 13.7 % (20.0-45.0) L Monocytes (%) (Auto) 13.4 % (1.0-10.0) H Eosinophils (%) (Auto) 4.2 % (0.0-3.0) H Basophils (%) (Auto) 0.6 % (0.0-2.0) Sodium Level 136 MMOL/L (136-145) Potassium Level 4.1 MMOL/L (3.5-5.1) Chloride Level 105 MMOL/L (98-107) Carbon Dioxide Level 25 MMOL/L (21-32) Anion Gap 6 mmol/L (5-15) Blood Urea Nitrogen 20 mg/dL (7-18) H Creatinine 1.4 MG/DL (0.55-1.30) H Estimat Glomerular Filtration Rate mL/min (>60) Glucose Level 91 MG/DL (74-106) Calcium Level 8.5 MG/DL (8.5-10.1) Phosphorus Level 2.7 MG/DL (2.5-4.9) Magnesium Level 1.7 MG/DL (1.8-2.4) L Total Bilirubin 0.5 MG/DL (0.2-1.0) Aspartate Amino Transf (AST/SGOT) 49 U/L (15-37) H Alanine Aminotransferase (ALT/SGPT) 31 U/L (12-78) Alkaline Phosphatase 253 U/L (46-116) H Troponin I 1.370 ng/mL (0.000-0.056) Total Protein 6.7 G/DL (6.4-8.2) Albumin 2.4 G/DL (3.4-5.0) L Globulin 4.3 g/dL Albumin/Globulin Ratio 0.6 (1.0-2.7) L Microbiology Date/Time Source Procedure Growth Status 01/29/19 19:54 Indwelling Cath Urine Culture - Final Staphylococcus Aureus Mixed Gram Positive Organism Complete Objective HEAD AND NECK: Showed no JVD. LUNGS: Clear. CARDIOVASCULAR: Regular S1 and S2 with no gallop or murmur. ABDOMEN: Soft. EXTREMITIES: No pitting edema. Status post left hip surgery. Kirby Paiz MD Feb 01, 2019 11:11
--- NOTE | 2019-02-01 11:16 | NUR ---
P.T Note: P.T evaluation deferred due to unstable to vitals. BP: 86/44 on Trendelenburg position. Will reattempt when pt is in stable condition. Conferred with MORTEZA Vee.
[2019-02-01 12:00] VITALS: BP_SYST 87; BP_SYST 97; BP_DIAS 49; BP_DIAS 54
--- NOTE | 2019-02-01 14:11 | Nephrology Progress Note ---
Assessment/Plan Problem List: (1) Renal failure (ARF), acute on chronic (2) Hyponatremia (3) Intertrochanteric fracture of left hip (4) Iron deficiency anemia (5) Troponin level elevated Assessment Acute Renal failure Cr lower with hydration ? Underlying CKD Fall, Left Hip fx Anemia low Iron Hyponatremia improving Plan post hip surgery, per ortho cardiology advise for acute rise of Troponin mag IV Slow Hydrate with Isotonic solution Stool Softner IV Iron Urine studies monitor renal parameters per orders Subjective ROS Limited/Unobtainable: No Objective Objective Last 24 Hour Vital Signs Date Time Temp Pulse Resp B/P (MAP) Pulse Ox O2 Delivery O2 Flow Rate FiO2 02/01/19 12:00 95.0 64 19 97/49 (65) 96 02/01/19 12:00 Room Air 02/01/19 12:00 68 02/01/19 09:00 79 111/66 02/01/19 08:53 97.9 02/01/19 08:00 100.3 79 19 111/66 (81) 96 02/01/19 08:00 Room Air 02/01/19 08:00 80 02/01/19 04:17 73 02/01/19 04:00 99.7 76 18 101/62 (75) 95 02/01/19 04:00 Room Air 02/01/19 00:00 100.0 80 20 98/50 (66) 94 02/01/19 00:00 Room Air 01/31/19 23:48 85 01/31/19 20:48 87 102/60 01/31/19 20:00 Room Air 01/31/19 20:00 98.1 87 20 102/60 (74) 94 01/31/19 19:10 85 01/31/19 16:00 99.7 78 18 102/56 (71) 96 Intake and Output 01/31/19 02/01/19 19:00 07:00 Intake Total 655 ml 805 ml Output Total 450 ml 100 ml Balance 205 ml 705 ml Intake Oral 480 ml 220 ml IV Total 175 ml 585 ml Output Urine Total 450 ml 100 ml # Voids 1 Laboratory Tests 02/01/19 04:44: White Blood Count 9.2, Red Blood Count 3.02L, Hemoglobin 8.9L, Hematocrit 27.2L , Mean Corpuscular Volume 90, Mean Corpuscular Hemoglobin 29.4, Mean Corpuscular Hemoglobin Concent 32.7, Red Cell Distribution Width 14.5, Platelet Count 171, Mean Platelet Volume 6.9, Neutrophils (%) (Auto) 68.2, Lymphocytes (% ) (Auto) 13.7L, Monocytes (%) (Auto) 13.4H, Eosinophils (%) (Auto) 4.2H, Basophils (%) (Auto) 0.6, Sodium Level 136, Potassium Level 4.1, Chloride Level 105, Carbon Dioxide Level 25, Anion Gap 6, Blood Urea Nitrogen 20H, Creatinine 1.4H, Estimat Glomerular Filtration Rate , Glucose Level 91, Calcium Level 8.5, Phosphorus Level 2.7, Magnesium Level 1.7L, Total Bilirubin 0.5, Aspartate Amino Transf (AST/SGOT) 49H, Alanine Aminotransferase (ALT/SGPT) 31, Alkaline Phosphatase 253H, Troponin I 1.370H, Total Protein 6.7, Albumin 2.4L, Globulin 4.3, Albumin/Globulin Ratio 0.6L Height (Feet): 5 Height (Inches): 6.00 Weight (Pounds): 153 General Appearance: no apparent distress Cardiovascular: arrhythmia Respiratory/Chest: decreased breath sounds Abdomen: soft Denver Weiss MD Feb 01, 2019 14:11
[2019-02-01 16:00] VITALS: BP 110/51
--- NOTE | 2019-02-01 17:55 | General Progress Note ---
Assessment/Plan Assessment/Plan S: I am ok O: denies any severe pain , left sided hip pain is well managed. tolerating PO diet PHYSICAL EXAMINATION:HEAD AND NECK: Atraumatic and normocephalic. CHEST: Clear to auscultation.HEART: S1, S2. Regular rate and rhythm. ABDOMEN: Soft. No organomegaly.MUSCULOSKELETAL: post op changes in left hip noted. Positive for decreased range of motion on the left lower extremity.NEUROLOGY: The patient is awake, alert, oriented x3. Meds: reviewed and reconciled in chart ASSESSMENT AND PLAN: 1. Acute left-sided intertrochanteric fracture secondary to mechanical fall. 2. Troponin Rise post Op. NSTEMI ?!, troponin leakage 2. Hypothyroidism. 3. Abnormal LFT. 4. Renal failure - age indeterminate. 5. Gastrointestinal and DVT prophylaxes. PLAN OF CARE: Will transfer to [facility] Discussed and consulted with Dr Carvalho Declining Trop levels Once cleared by Cardiology ,may be transferred to [facility] for Ccath or for ARU for completion of rehab Subjective Allergies: Coded Allergies: No Known Allergies (Unverified , 01/28/19) Objective Last 24 Hour Vital Signs Date Time Temp Pulse Resp B/P (MAP) Pulse Ox O2 Delivery O2 Flow Rate FiO2 02/01/19 16:00 98.9 87 18 110/51 (70) 98 02/01/19 16:00 Room Air 02/01/19 15:32 71 02/01/19 12:00 95.0 64 19 97/49 (65) 96 02/01/19 12:00 Room Air 02/01/19 12:00 68 02/01/19 09:00 79 111/66 02/01/19 08:53 97.9 02/01/19 08:00 100.3 79 19 111/66 (81) 96 02/01/19 08:00 Room Air 02/01/19 08:00 80 02/01/19 04:17 73 02/01/19 04:00 99.7 76 18 101/62 (75) 95 02/01/19 04:00 Room Air 02/01/19 00:00 100.0 80 20 98/50 (66) 94 02/01/19 00:00 Room Air 01/31/19 23:48 85 01/31/19 20:48 87 102/60 01/31/19 20:00 Room Air 01/31/19 20:00 98.1 87 20 102/60 (74) 94 01/31/19 19:10 85 Intake and Output 01/31/19 02/01/19 18:59 06:59 Intake Total 605 ml 855 ml Output Total 450 ml 100 ml Balance 155 ml 755 ml Intake Oral 480 ml 220 ml IV Total 125 ml 635 ml Output Urine Total 450 ml 100 ml # Voids 1 Laboratory Tests 02/01/19 04:44: White Blood Count 9.2, Red Blood Count 3.02L, Hemoglobin 8.9L, Hematocrit 27.2L , Mean Corpuscular Volume 90, Mean Corpuscular Hemoglobin 29.4, Mean Corpuscular Hemoglobin Concent 32.7, Red Cell Distribution Width 14.5, Platelet Count 171, Mean Platelet Volume 6.9, Neutrophils (%) (Auto) 68.2, Lymphocytes (% ) (Auto) 13.7L, Monocytes (%) (Auto) 13.4H, Eosinophils (%) (Auto) 4.2H, Basophils (%) (Auto) 0.6, Sodium Level 136, Potassium Level 4.1, Chloride Level 105, Carbon Dioxide Level 25, Anion Gap 6, Blood Urea Nitrogen 20H, Creatinine 1.4H, Estimat Glomerular Filtration Rate , Glucose Level 91, Calcium Level 8.5, Phosphorus Level 2.7, Magnesium Level 1.7L, Total Bilirubin 0.5, Aspartate Amino Transf (AST/SGOT) 49H, Alanine Aminotransferase (ALT/SGPT) 31, Alkaline Phosphatase 253H, Troponin I 1.370H, Total Protein 6.7, Albumin 2.4L, Globulin 4.3, Albumin/Globulin Ratio 0.6L Height (Feet): 5 Height (Inches): 6.00 Weight (Pounds): 153 Guille Stephen MD Feb 01, 2019 17:55
--- NOTE | 2019-02-01 19:10 | NUR ---
NURSE NOTES: Received report from Barbara PRO, pt in b ed awake, A/O x's4- able to make needs known- Azeri speaking, family at bedside, No signs or symptoms of acute cardiac or respiratory distress noted, bed in lowest position and call light within easy reach, bed alarm on, side rails up x's3 and safety brakes engaged, pt. appears to be resting comfortably in bed sating at 99% on room air, Urinal at bed side and within easy reach, left hand 18G IV intact an patent- running D5NS at 50cc/hr. Safety measures continued, will continue with plan of care. Addendum: 02/02/19 at 0605 by MARCY BRYAN RN RN correction to msg above pt. does not have urinal for urine collection- pt. has Lake and is intact and draining to gravity.
--- NOTE | 2019-02-01 19:12 | NUR ---
HAND-OFF: Report given to Angelito Ramsey RN.
--- NOTE | 2019-02-01 19:20 | NUR ---
NURSE NOTES: Per endorsement Metoprolol is to be given for elevated heart rate- per nurse no parameters given for heart rate. Called DR. Au, per doctor to cancel Metoprolol order given earlier and to put new order for Metoprolol 10mg IV q4 scheduled. hold for heart rate <70- will carry out orders. Addendum: 02/01/19 at 1951 by MARCY BRYAN RN RN correction to message above- note put in wrong patient chart. Addendum: 02/01/19 at 1952 by MARCY BRYAN RN RN PLEASE DISREGARD MESSAGE REGARDING METOPROLOL- NOT FOR THIS PATIENT.
[2019-02-01 20:00] VITALS: BP 110/65
[2019-02-01] MEDS: Iron Sucrose 100 MG in NS 55 ML IV SCH (20:39)
[2019-02-01] MEDS: Latanoprost 0.005% Opth 2.5ml Soln BOTH EYES SCH (20:40)
[2019-02-01] MEDS: Enoxaparin 40mg Inj SUBQ SCH (20:44)
[2019-02-01] MEDS ORDERED: Tamsulosin 0.4mg cap ORAL SCH (21:00)
[2019-02-02] VITALS: BP 110/62
[2019-02-02] MEDS: HYDROcodone/Acetamin 5/325 tab ORAL PRN (01:22)
[2019-02-02 04:00] VITALS: BP 100/58
[2019-02-02] MEDS: D5NS 1,000 ML IV SCH ×2 (05:48→23:25)
[2019-02-02] MEDS: Levothyroxine 25mcg tab ORAL SCH (05:48)
--- NOTE | 2019-02-02 07:04 | NUR ---
HAND-OFF: Report given to annamaria PRO, pt. remains stable and no signs of distress noted.
--- NOTE | 2019-02-02 07:26 | NUR ---
NURSE NOTES: Received patient from Angelito Ramsey RN. Patient is asleep and is on room air. Lake catheter is patent and draining. IV site is Left Hand 18 Gauge, it is patent and intact. Patient is receiving D5NS at 50cc/hr. Bed is locked, placed in lowest position, call light within reach, side rails up x3. Will continue to monitor.
[2019-02-02 07:35] LABS: BASOPHILS % (AUTO) 0.4 % (0.0-2.0); EOSINOPHILS % (AUTO) 5.5 % (0.0-3.0); HEMATOCRIT 25.8 % (42.0-52.0); HEMOGLOBIN 8.4 G/DL (14.2-18.0); LYMPHOCYTES % (AUTO) 11.9 % (20.0-45.0); MEAN CORPUSCULAR VOLUME 90 FL (80-99); MONOCYTES % (AUTO) 14.3 % (1.0-10.0); NEUTROPHILS % (AUTO) 67.9 % (45.0-75.0); PLATELET COUNT 174 K/UL (150-450); RED BLOOD COUNT 2.85 M/UL (4.70-6.10); RED CELL DISTRIBUTION WIDTH 14.4 % (11.6-14.8); WHITE BLOOD COUNT 8.2 K/UL (4.8-10.8)
[2019-02-02 08:00] VITALS: BP 112/63
[2019-02-02] MEDS: Cosopt Opth Soln 10 mL Btl BOTH EYES SCH ×2 (09:00→17:44)
[2019-02-02] MEDS: Aspirin EC 81mg tab ORAL SCH (09:00)
[2019-02-02] MEDS: Docusate 100mg cap ORAL SCH ×3 (09:00→17:44)
--- NOTE | 2019-02-02 09:04 | General Progress Note ---
Assessment/Plan Assessment/Plan S: I am ok O: denies any severe pain , left sided hip pain is well managed. tolerating PO diet PHYSICAL EXAMINATION:HEAD AND NECK: Atraumatic and normocephalic. CHEST: Clear to auscultation.HEART: S1, S2. Regular rate and rhythm. ABDOMEN: Soft. No organomegaly.MUSCULOSKELETAL: post op changes in left hip noted. Positive for decreased range of motion on the left lower extremity.NEUROLOGY: The patient is awake, alert, oriented x3. Meds: reviewed and reconciled in chart ASSESSMENT AND PLAN: 1. Acute left-sided intertrochanteric fracture secondary to mechanical fall. 2. Troponin Rise post Op. NSTEMI ?!, troponin leakage 2. Hypothyroidism. 3. Abnormal LFT. 4. Renal failure - age indeterminate. 5. Gastrointestinal and DVT prophylaxes. PLAN OF CARE: Will transfer to [facility] Discussed and consulted with Dr Carvalho Decreasing Trop levels Will monitor serial troponin level ,may be transferred to [facility] for Ccath or for ARU once medically clear Subjective Allergies: Coded Allergies: No Known Allergies (Unverified , 01/28/19) Objective Last 24 Hour Vital Signs Date Time Temp Pulse Resp B/P (MAP) Pulse Ox O2 Delivery O2 Flow Rate FiO2 02/02/19 08:00 Room Air 02/02/19 04:00 98.9 64 20 100/58 (72) 98 02/02/19 04:00 74 02/02/19 04:00 Room Air 02/02/19 01:52 100.4 02/02/19 01:00 98.8 02/02/19 00:54 98.8 02/02/19 00:00 100.4 78 22 110/62 (78) 96 02/02/19 00:00 74 02/02/19 00:00 Room Air 02/01/19 20:00 Room Air 02/01/19 20:00 98.2 74 20 110/65 (80) 96 02/01/19 20:00 69 02/01/19 16:00 98.9 87 18 110/51 (70) 98 02/01/19 16:00 Room Air 02/01/19 15:32 71 02/01/19 12:00 95.0 64 19 97/49 (65) 96 02/01/19 12:00 Room Air 02/01/19 12:00 68 Intake and Output 02/01/19 02/02/19 19:00 07:00 Intake Total 2109.16 ml 610.0 ml Output Total 920 ml 650 ml Balance 1189.16 ml -40.0 ml Intake Oral 360 ml IV Total 1749.16 ml 610.0 ml Output Urine Total 920 ml 650 ml Laboratory Tests 02/02/19 06:25: White Blood Count 8.2, Red Blood Count 2.85L, Hemoglobin 8.4L, Hematocrit 25.8L , Mean Corpuscular Volume 90, Mean Corpuscular Hemoglobin 29.3, Mean Corpuscular Hemoglobin Concent 32.5, Red Cell Distribution Width 14.4, Platelet Count 174, Mean Platelet Volume 7.5, Neutrophils (%) (Auto) 67.9, Lymphocytes (% ) (Auto) 11.9L, Monocytes (%) (Auto) 14.3H, Eosinophils (%) (Auto) 5.5H, Basophils (%) (Auto) 0.4 Height (Feet): 5 Height (Inches): 6.00 Weight (Pounds): 153 Guille Stephen MD Feb 02, 2019 09:04
[2019-02-02 12:00] VITALS: BP 104/63
--- NOTE | 2019-02-02 12:03 | NUR ---
P.T Note: Vitals were stable and cleared by RN for P.T evaluation/tx. P.T evaluation completed and treatment initiated. Please refer to P.T evaluation for current functional status. Pt. is alert, O x 4 , pleasant and cooperative. Pt reports c/o L hip pain 0/10 at rest 6/10 with movement initiation however agreeable to participate in P.T evaluation/tx. Pt currently requires verbal cues , extended time and MIN A X 1 for bed mobility , transfers and gait/ambulation activities using the FWW. Pt tolerated P.T evaluation/tx well despite complain of pain and lightheadedness which subsided over time. BP: 115/75 mmhg in supine, 112/64 mmhg in sitting and 90/54mmh initial standing however recovered to 105/74mmhg post gait activity. Skilled P.T service is warranted to improve strength, balance, endurance to improve functional mobility independence and safety during stay. Recommend SNF for short term rehab VS home with P.T. Also recommending FWW and 3 in 1 commode. Thank you for this referral.
--- NOTE | 2019-02-02 14:57 | Nephrology Progress Note ---
Assessment/Plan Problem List: (1) Renal failure (ARF), acute on chronic (2) Hyponatremia (3) Intertrochanteric fracture of left hip (4) Iron deficiency anemia (5) Troponin level elevated Assessment Acute Renal failure Cr lower with hydration ? Underlying CKD Fall, Left Hip fx Anemia low Iron Hyponatremia improving Plan need jean as he retains when jean is out post hip surgery, per ortho cardiology advise for acute rise of Troponin mag as needed Slow Hydrate with Isotonic solution Stool Softner IV Iron Urine studies monitor renal parameters per orders Subjective ROS Limited/Unobtainable: No Constitutional: Reports: malaise Objective Objective Last 24 Hour Vital Signs Date Time Temp Pulse Resp B/P (MAP) Pulse Ox O2 Delivery O2 Flow Rate FiO2 02/02/19 12:00 Room Air 02/02/19 12:00 98.2 63 21 104/63 (77) 100 02/02/19 11:41 65 02/02/19 08:00 98.3 64 20 112/63 (79) 98 02/02/19 08:00 Room Air 02/02/19 07:37 85 02/02/19 04:00 98.9 64 20 100/58 (72) 98 02/02/19 04:00 74 02/02/19 04:00 Room Air 02/02/19 01:52 100.4 02/02/19 01:00 98.8 02/02/19 00:54 98.8 02/02/19 00:00 100.4 78 22 110/62 (78) 96 02/02/19 00:00 74 02/02/19 00:00 Room Air 02/01/19 20:00 Room Air 02/01/19 20:00 98.2 74 20 110/65 (80) 96 02/01/19 20:00 69 02/01/19 16:00 98.9 87 18 110/51 (70) 98 02/01/19 16:00 Room Air 02/01/19 15:32 71 Intake and Output 02/01/19 02/02/19 19:00 07:00 Intake Total 2109.16 ml 610.0 ml Output Total 920 ml 650 ml Balance 1189.16 ml -40.0 ml Intake Oral 360 ml IV Total 1749.16 ml 610.0 ml Output Urine Total 920 ml 650 ml Laboratory Tests 02/02/19 06:25: White Blood Count 8.2, Red Blood Count 2.85L, Hemoglobin 8.4L, Hematocrit 25.8L , Mean Corpuscular Volume 90, Mean Corpuscular Hemoglobin 29.3, Mean Corpuscular Hemoglobin Concent 32.5, Red Cell Distribution Width 14.4, Platelet Count 174, Mean Platelet Volume 7.5, Neutrophils (%) (Auto) 67.9, Lymphocytes (% ) (Auto) 11.9L, Monocytes (%) (Auto) 14.3H, Eosinophils (%) (Auto) 5.5H, Basophils (%) (Auto) 0.4, Troponin I 1.040H Height (Feet): 5 Height (Inches): 6.00 Weight (Pounds): 153 General Appearance: no apparent distress Cardiovascular: normal rate Respiratory/Chest: lungs clear Abdomen: soft Denver Weiss MD Feb 02, 2019 14:57
--- NOTE | 2019-02-02 15:31 | Cardiac Electrophysiology PN ---
Assessment/Plan Assessment/Plan 1. Non-ST elevation myocardial infarction with inferolateral ischemia on the EKG as well as troponin elevation that went up from negative 20 3.1 and now down to 1.3. Denies any chest pain or shortness of breath. On aspirin and statin. Lopressor DCed for hypotension After stabilization, the patient may need cardiac catheterization 2. Hypotension. Blood pressure better off metoprolol. 3. Renal failure. Creatinine on admission was 2.1, but gradually has come down to 1.4 now. The patient off ADALBERTO inhibitor or angiotensin-receptor marii per Dr. Weiss. 4. Status post left hip open reduction and internal fixation. DW RN Subjective Subjective BP stabilized. No new events. In SR Objective Last 24 Hour Vital Signs Date Time Temp Pulse Resp B/P (MAP) Pulse Ox O2 Delivery O2 Flow Rate FiO2 02/02/19 12:00 Room Air 02/02/19 12:00 98.2 63 21 104/63 (77) 100 02/02/19 11:41 65 02/02/19 08:00 98.3 64 20 112/63 (79) 98 02/02/19 08:00 Room Air 02/02/19 07:37 85 02/02/19 04:00 98.9 64 20 100/58 (72) 98 02/02/19 04:00 74 02/02/19 04:00 Room Air 02/02/19 01:52 100.4 02/02/19 01:00 98.8 02/02/19 00:54 98.8 02/02/19 00:00 100.4 78 22 110/62 (78) 96 02/02/19 00:00 74 02/02/19 00:00 Room Air 02/01/19 20:00 Room Air 02/01/19 20:00 98.2 74 20 110/65 (80) 96 02/01/19 20:00 69 02/01/19 16:00 98.9 87 18 110/51 (70) 98 02/01/19 16:00 Room Air 02/01/19 15:32 71 Intake and Output 02/01/19 02/02/19 19:00 07:00 Intake Total 2109.16 ml 610.0 ml Output Total 920 ml 650 ml Balance 1189.16 ml -40.0 ml Intake Oral 360 ml IV Total 1749.16 ml 610.0 ml Output Urine Total 920 ml 650 ml Laboratory Tests Test 02/02/19 06:25 White Blood Count 8.2 K/UL (4.8-10.8) Red Blood Count 2.85 M/UL (4.70-6.10) L Hemoglobin 8.4 G/DL (14.2-18.0) L Hematocrit 25.8 % (42.0-52.0) L Mean Corpuscular Volume 90 FL (80-99) Mean Corpuscular Hemoglobin 29.3 PG (27.0-31.0) Mean Corpuscular Hemoglobin Concent 32.5 G/DL (32.0-36.0) Red Cell Distribution Width 14.4 % (11.6-14.8) Platelet Count 174 K/UL (150-450) Mean Platelet Volume 7.5 FL (6.5-10.1) Neutrophils (%) (Auto) 67.9 % (45.0-75.0) Lymphocytes (%) (Auto) 11.9 % (20.0-45.0) L Monocytes (%) (Auto) 14.3 % (1.0-10.0) H Eosinophils (%) (Auto) 5.5 % (0.0-3.0) H Basophils (%) (Auto) 0.4 % (0.0-2.0) Troponin I 1.040 ng/mL (0.000-0.056) Objective HEAD AND NECK: Showed no JVD. LUNGS: Clear. CARDIOVASCULAR: Regular S1 and S2 with no gallop or murmur. ABDOMEN: Soft. EXTREMITIES: No pitting edema. Status post left hip surgery. Kirby Paiz MD Feb 02, 2019 15:31
[2019-02-02] MEDS ORDERED: D5NS 1000ml IV ONE (15:54)
[2019-02-02 16:00] VITALS: BP 106/62
--- NOTE | 2019-02-02 18:45 | NUR ---
TRANSFER TO FLOOR: Patient transferred to Telemetry, per Dr. Carvalho. Report given to Justo Vásquez RN. Belongings and medications given to receiving nurse. Family informed of transfer.
--- NOTE | 2019-02-02 18:50 | NUR ---
NURSE NOTES: Patient transferred in from [facility] by Torri Pineda RN in stable conditions with belongings.
[2019-02-02] MEDS ORDERED: HYDROcodone/Acetamin 5/325 tab ORAL PRN (18:54)
[2019-02-02] MEDS ORDERED: Morphine Sulfate 2mg/ml Inj(IV/IM USE ONLY) IVP PRN (18:54)
--- NOTE | 2019-02-02 19:56 | NUR ---
HAND-OFF: Report given to Eduardo Ramachandran RN. Patient sitting in semi-Bergeron's position, awake and alert, no complaints of pain, no SOB, bed in lowest position, call light within reach, SCD's in place.
--- NOTE | 2019-02-02 19:57 | NUR ---
NURSE NOTES: Received report from MORTEZA Olson. Patient in bed awake showing no signs of acute distress. AOx4. Respiration even and non labored on room air. No SOB noted. IV lines patent and intact. Bed in lowest position. Call light within reach. All needs attended and met. Will continue plan of care.
[2019-02-02 20:00] VITALS: BP 99/51
[2019-02-02] MEDS: Tamsulosin 0.4mg cap ORAL SCH (20:56)
[2019-02-02] MEDS: Iron Sucrose 100 MG in NS 55 ML IV SCH (20:56)
[2019-02-02] MEDS: Enoxaparin 40mg Inj SUBQ SCH (20:58)
[2019-02-02] MEDS ORDERED: Tamsulosin 0.4mg cap ORAL SCH (21:00)
[2019-02-02] MEDS: Latanoprost 0.005% Opth 2.5ml Soln BOTH EYES SCH (21:00)
[2019-02-03] VITALS: BP 110/64
[2019-02-03 04:00] VITALS: BP 98/57
[2019-02-03] MEDS: Levothyroxine 25mcg tab ORAL SCH (06:43)
[2019-02-03 06:45] LABS: HEMATOCRIT 24.2 % (42.0-52.0); HEMOGLOBIN 7.9 G/DL (14.2-18.0); MEAN CORPUSCULAR VOLUME 89 FL (80-99); PLATELET COUNT 190 K/UL (150-450); RED BLOOD COUNT 2.71 M/UL (4.70-6.10); RED CELL DISTRIBUTION WIDTH 14.4 % (11.6-14.8); WHITE BLOOD COUNT 7.1 K/UL (4.8-10.8)
--- NOTE | 2019-02-03 07:13 | NUR ---
HAND-OFF: Report given to MORTEZA Peters.
[2019-02-03] MEDS: Aspirin EC 81mg tab ORAL SCH (08:30)
[2019-02-03] MEDS: Docusate 100mg cap ORAL SCH ×3 (08:30→17:22)
[2019-02-03] MEDS: Tamsulosin 0.4mg cap ORAL SCH ×2 (08:30→20:41)
[2019-02-03] MEDS: Cosopt Opth Soln 10 mL Btl BOTH EYES SCH ×2 (09:00→17:21)
--- NOTE | 2019-02-03 10:42 | General Progress Note ---
Assessment/Plan Status: stable Assessment/Plan S: I am ok O: denies any severe pain , left sided hip pain is well managed. tolerating PO diet PHYSICAL EXAMINATION:HEAD AND NECK: Atraumatic and normocephalic. CHEST: Clear to auscultation.HEART: S1, S2. Regular rate and rhythm. ABDOMEN: Soft. No organomegaly.MUSCULOSKELETAL: post op changes in left hip noted. Positive for decreased range of motion on the left lower extremity.NEUROLOGY: The patient is awake, alert, oriented x3. Meds: reviewed and reconciled in chart including ASA ASSESSMENT AND PLAN: 1. Acute left-sided intertrochanteric fracture secondary to mechanical fall. 2. Troponin Rise post Op. NSTEMI ?!, troponin leakage 2. Hypothyroidism. 3. Abnormal LFT. 4. Renal failure - age indeterminate. 5. Gastrointestinal and DVT prophylaxes. PLAN OF CARE: Will transfer to [facility] Discussed and consulted with Dr Carvalho Decreasing Trop levels Will monitor serial troponin level ,may be transferred to [facility] for Ccath or for ARU once medically clear Will extract Alke and Voiding trial Subjective Allergies: Coded Allergies: No Known Allergies (Unverified , 01/28/19) Objective Last 24 Hour Vital Signs Date Time Temp Pulse Resp B/P (MAP) Pulse Ox O2 Delivery O2 Flow Rate FiO2 02/03/19 10:37 Room Air 02/03/19 04:00 69 02/03/19 04:00 99.2 68 20 98/57 (71) 98 02/03/19 00:00 100.0 74 20 110/64 (79) 98 02/03/19 00:00 71 02/03/19 00:00 Room Air 02/02/19 20:00 99.0 67 18 99/51 (67) 100 02/02/19 20:00 67 02/02/19 20:00 Room Air 02/02/19 16:00 Room Air 02/02/19 16:00 98.5 63 22 106/62 (77) 97 02/02/19 15:36 65 02/02/19 12:00 Room Air 02/02/19 12:00 98.2 63 21 104/63 (77) 100 02/02/19 11:41 65 Intake and Output 02/02/19 02/03/19 19:00 07:00 Intake Total 949.167 ml 329.16 ml Output Total 600 ml 850 ml Balance 349.167 ml -520.84 ml Intake Oral 360 ml IV Total 589.167 ml 329.16 ml Output Urine Total 600 ml 850 ml # Bowel Movements 2 2 Laboratory Tests 02/03/19 05:55: White Blood Count 7.1, Red Blood Count 2.71L, Hemoglobin 7.9L, Hematocrit 24.2L , Mean Corpuscular Volume 89, Mean Corpuscular Hemoglobin 29.0, Mean Corpuscular Hemoglobin Concent 32.5, Red Cell Distribution Width 14.4, Platelet Count 190, Mean Platelet Volume 6.6, Neutrophils (%) (Auto) , Lymphocytes (%) ( Auto) , Monocytes (%) (Auto) , Eosinophils (%) (Auto) , Basophils (%) (Auto) , Differential Total Cells Counted 100, Neutrophils % (Manual) 67, Lymphocytes % ( Manual) 20, Monocytes % (Manual) 10, Eosinophils % (Manual) 3, Basophils % ( Manual) 0, Band Neutrophils 0, Platelet Estimate Adequate, Platelet Morphology Normal, Anisocytosis 1+ Height (Feet): 5 Height (Inches): 6.00 Weight (Pounds): 153 Guille Stephen MD Feb 03, 2019 10:42
[2019-02-03 11:47] VITALS: BP 110/57
--- NOTE | 2019-02-03 12:37 | General Progress Note ---
Progress Note Progress Note REHAB F/U PROGRESS NOTE: SUBJECTIVE: IN TELE AT BED, SUPINE, DENIES PAIN AT REST BM YESTERDAY VOIDING VOLITIONAL PER PT >> Sit to Stand * Moderate Assistance Bed to Chair/Wheelchair * Moderate Assistance Precautions * Weight Bearing * Fall Precautions Weight Bearing Assessment Label * Left lower extremity * Weight Bearing Status Partial weight bearing * Weight Bearing Comment LLE 50% PWB for 6 wks Distance * 10 ft CHART AND MEDS REVIEWED. REVIEW OF SYSTEMS: No chills or fever. EYES: Denies diplopia. EAR, NOSE, AND THROAT: Denies dysphagia. CARDIOVASCULAR: No chest pain. PULMONARY: No shortness of breath. GASTROINTESTINAL: No abdominal pain. GENITOURINARY: No dysuria, hematuria. MUSCULOSKELETAL: Left hip fracture post surgery. NEURO: The patient denies spasm, tics, or numbness. PHYSICAL EXAMINATION: VITAL SIGNS: PER CHART, NOTED,. HEENT: Extraocular movements are intact. Neck supple HEART: Regular rhythm and rate. LUNGS: Clear to auscultation bilateral. ABDOMEN: Soft, nontender, nondistended. Normal bowel sounds EXTREMITIES: Left knee postoperative with dressing. No calf tenderness. No pitting edema. No calf tenderness. No clubbing or cyanosis. Left hip postoperative with dressing. NEUROLOGIC: The patient is alert, awake, Movement of bilateral upper and right lower limb antigravity. Movement of left ankle dorsiflexion, extensor hallucis longus 4/5 to 5/5. DATA: PER CHART. NOTED. ASSESSMENT: A 78-year-old male originally from [facility] status post mechanical fall, trip and fall at the sidewalk of his apartment with; 1. Left hip intertrochanteric fracture/proximal femoral neck fracture status post open reduction and internal fixation by Dr. Goncalves on January 30, 2019. Partial weightbearing. Non-ST elevation myocardial infarction >>>> PER CONCRETE BUCKET HOOKER >>> """""with inferolateral ischemia on the EKG as well as troponin elevation . Lopressor DCed for hypotension After stabilization, the patient may need cardiac catheterization """"" 2. Limb pain. 3. Gait abnormality. 4. Debility and functional decline. 5. Acute kidney injury. 6. Anemia. 7. Microhematuria. 8. Iron deficiency. 9. Electrolyte imbalance. 10. Elevated liver function tests. 11. Elevated proBNP with ejection fraction of 50%, questionable mild congestive heart failure. 12. Hypothyroidism, newly diagnosed. 13. Hypertension. 14. Anemia. RECOMMENDATION: This patient requires acute inpatient rehabilitation placement AFTER The patient is medically and surgically stable and cleared. 24 hours nursing care. Physical therapy for range of motion, transfer training, endurance, balance and gait training, fall prevention with appropriate assistive device. Occupational therapy for activities of daily living, equipment function, and transfer training. Upper extremity range of motion and strengthening exercise. Nursing for his bowel and bladder, medication regimen, skin care prevention of pressure ulcer, patient and family education. Fall precaution, pressure ulcer precaution, cardiac precaution. Incentive spirometer. Nutritional support. Monitor his bowel and bladder. Skin care and dressing change. Nephrology management, Nephrology is following. Acute inpatient rehabilitation placement WHEN>> the patient is cleared by primary care physician. Continue medical and surgical management per medical and surgical team. CARDIOLOGY >> F/U W/U. MUST CLEAR BY CARD FOR ARU. Robbin Best MD Feb 03, 2019 12:37
[2019-02-03] MEDS: D5NS 1,000 ML IV SCH (13:57)
--- NOTE | 2019-02-03 14:51 | NUR ---
NURSE NOTES: loly cath removed @ 1132 as ordered will continue to monitor per protocol
[2019-02-03 16:23] VITALS: BP 127/68
--- NOTE | 2019-02-03 18:30 | NUR ---
NURSE NOTES: patient urinated 100 cc by self bladder scan done per protocol 493 ml residual per bladder scan DR. Stephen notified and per order " give 3 more hours. Re check at 9pm." i will endorse to grizzlyman nurse
--- NOTE | 2019-02-03 18:41 | Nephrology Progress Note ---
Assessment/Plan Problem List: (1) Renal failure (ARF), acute on chronic (2) Hyponatremia (3) Intertrochanteric fracture of left hip (4) Iron deficiency anemia (5) Troponin level elevated (6) Anemia Assessment: worsening Assessment Acute Renal failure Cr lower with hydration ? Underlying CKD Fall, Left Hip fx Anemia low Iron Hyponatremia improving Plan jean discontinued by PMD post hip surgery, per ortho cardiology advise for acute rise of Troponin mag as needed Slow Hydrate with Isotonic solution Stool Softner IV Iron Urine studies monitor renal parameters per orders Subjective ROS Limited/Unobtainable: No Constitutional: Reports: malaise Objective Objective Last 24 Hour Vital Signs Date Time Temp Pulse Resp B/P (MAP) Pulse Ox O2 Delivery O2 Flow Rate FiO2 02/03/19 16:23 98.9 77 18 127/68 (87) 99 02/03/19 12:00 74 02/03/19 11:47 98.4 76 18 110/57 (74) 99 02/03/19 10:37 Room Air 02/03/19 08:00 71 02/03/19 04:00 69 02/03/19 04:00 99.2 68 20 98/57 (71) 98 02/03/19 00:00 100.0 74 20 110/64 (79) 98 02/03/19 00:00 71 02/03/19 00:00 Room Air 02/02/19 20:00 99.0 67 18 99/51 (67) 100 02/02/19 20:00 67 02/02/19 20:00 Room Air Intake and Output 02/02/19 02/03/19 19:00 07:00 Intake Total 949.167 ml 329.16 ml Output Total 600 ml 850 ml Balance 349.167 ml -520.84 ml Intake Oral 360 ml IV Total 589.167 ml 329.16 ml Output Urine Total 600 ml 850 ml # Bowel Movements 2 2 Laboratory Tests 02/03/19 05:55: White Blood Count 7.1, Red Blood Count 2.71L, Hemoglobin 7.9L, Hematocrit 24.2L , Mean Corpuscular Volume 89, Mean Corpuscular Hemoglobin 29.0, Mean Corpuscular Hemoglobin Concent 32.5, Red Cell Distribution Width 14.4, Platelet Count 190, Mean Platelet Volume 6.6, Neutrophils (%) (Auto) , Lymphocytes (%) ( Auto) , Monocytes (%) (Auto) , Eosinophils (%) (Auto) , Basophils (%) (Auto) , Differential Total Cells Counted 100, Neutrophils % (Manual) 67, Lymphocytes % ( Manual) 20, Monocytes % (Manual) 10, Eosinophils % (Manual) 3, Basophils % ( Manual) 0, Band Neutrophils 0, Platelet Estimate Adequate, Platelet Morphology Normal, Anisocytosis 1+ Height (Feet): 5 Height (Inches): 6.00 Weight (Pounds): 153 General Appearance: no apparent distress Cardiovascular: normal rate Respiratory/Chest: lungs clear Abdomen: soft Objective no change Denver Weiss MD Feb 03, 2019 18:41
[2019-02-03 20:00] VITALS: BP 129/73
[2019-02-03] MEDS ORDERED: Tubing IV Secondary IV ONE (20:08)
[2019-02-03] MEDS ORDERED: D5NS 1000ml IV ONE (20:08)
[2019-02-03] MEDS ORDERED: NS 275ml ONE (20:08)
[2019-02-03] MEDS: Latanoprost 0.005% Opth 2.5ml Soln BOTH EYES SCH (20:40)
[2019-02-03] MEDS: Iron Sucrose 100 MG in NS 55 ML IV SCH (20:41)
[2019-02-03] MEDS: Enoxaparin 40mg Inj SUBQ SCH (20:42)
--- NOTE | 2019-02-03 22:00 | NUR ---
NURSE NOTES: Pt. Urinated 100cc using urinal. Bladder scanned done per protocol showing 560cc of residual urine. Dr. Stephen is made aware. Awaiting call back for any order.
[2019-02-04] VITALS: BP 120/70
--- NOTE | 2019-02-04 | NUR ---
NURSE NOTES: Received order from Dr. Stephen to Straight cath I&O patient for urinary retention. I&O straight cath. urine 600ml out and patient urinate 200ml in the urinal.
[2019-02-04 04:00] VITALS: BP 123/69
[2019-02-04] MEDS: Levothyroxine 25mcg tab ORAL SCH (06:13)
--- NOTE | 2019-02-04 07:32 | NUR ---
HAND-OFF: Report given to MORTEZA Barrientos.
--- NOTE | 2019-02-04 07:35 | NUR ---
NURSE NOTES: Report received from Ricco PRO.Pt resting in bed ,awake,alert noted no resp distress denies any c/o pain or discomfort,SR on the monitor,SR up x2 HOB elevated ,bed lock in lowest positon,will continue with plans of care.
[2019-02-04 08:00] VITALS: BP 132/78
--- NOTE | 2019-02-04 08:30 | NUR ---
NURSE NOTES: PT at bedside,ambulated around the hallway,activity tolerated well.Pt sat up on chair after walking.
[2019-02-04] MEDS: Tamsulosin 0.4mg cap ORAL SCH (08:59)
[2019-02-04] MEDS: Aspirin EC 81mg tab ORAL SCH (08:59)
[2019-02-04] MEDS: Docusate 100mg cap ORAL SCH ×3 (09:00→17:16)
[2019-02-04] MEDS: Cosopt Opth Soln 10 mL Btl BOTH EYES SCH ×2 (09:01→17:15)
--- NOTE | 2019-02-04 11:25 | NUR ---
NURSE NOTES: Assisted pt back to bed,verbalized feeling tired sitting in chair.
[2019-02-04 12:00] VITALS: BP 127/72
--- NOTE | 2019-02-04 12:13 | NUR ---
NURSE NOTES: left a message to dr whitlock regarding hgb level of 7.9 yesterday. awaits callback and new order as of this time.
[2019-02-04 12:18] LABS: ALANINE AMINOTRANSFERASE 67 U/L (12-78); ALBUMIN 2.3 G/DL (3.4-5.0); ALBUMIN/GLOBULIN RATIO 0.5 (1.0-2.7); ALKALINE PHOSPHATASE 306 U/L (46-116); ANION GAP 10 mmol/L (5-15); ASPARTATE AMINO TRANSFERASE 95 U/L (15-37); BILIRUBIN,TOTAL 0.6 MG/DL (0.2-1.0); BLOOD UREA NITROGEN 13 mg/dL (7-18); CALCIUM 8.4 MG/DL (8.5-10.1); CARBON DIOXIDE 24 MMOL/L (21-32); CHLORIDE 99 MMOL/L (98-107); CREATININE 1.1 MG/DL (0.55-1.30); PHOSPHORUS 2.3 MG/DL (2.5-4.9); POTASSIUM 4.2 MMOL/L (3.5-5.1); SODIUM 133 MMOL/L (136-145)
--- NOTE | 2019-02-04 12:28 | Cardiac Electrophysiology PN ---
Assessment/Plan Assessment/Plan 1. Non-ST elevation myocardial infarction with inferolateral ischemia on the EKG as well as troponin elevation that went up from negative to 3.1 and now down to 1.3. Denies any chest pain or shortness of breath. On aspirin and statin. Off Lopressor for hypotension After stabilization, the patient may need cardiac catheterization 2. Hypotension. Blood pressure better off metoprolol. 3. Renal failure. Creatinine on admission was 2.1, but gradually has come down to 1.4 now. The patient off ADALBERTO inhibitor or angiotensin-receptor marii per Dr. Weiss. 4. Status post left hip open reduction and internal fixation. ARU at [facility] pending 5. Fever 99.[address] RN and Dr. Robles Subjective Subjective BP stabilized. No new events. In SR. Awaiting transfer to ARU Objective Last 24 Hour Vital Signs Date Time Temp Pulse Resp B/P (MAP) Pulse Ox O2 Delivery O2 Flow Rate FiO2 02/04/19 09:00 Room Air 02/04/19 08:00 83 02/04/19 08:00 99.5 84 18 132/78 (96) 96 02/04/19 04:00 99.7 78 18 123/69 (87) 96 02/04/19 04:00 70 02/04/19 00:00 99.4 74 18 120/70 (87) 96 02/04/19 00:00 66 02/03/19 21:00 Room Air 02/03/19 20:00 65 02/03/19 20:00 99.1 68 18 129/73 (91) 95 02/03/19 16:23 98.9 77 18 127/68 (87) 99 02/03/19 16:00 72 Intake and Output 02/03/19 02/04/19 19:00 07:00 Intake Total 1270 ml 1180 ml Output Total 800 ml Balance 1270 ml 380 ml Intake Oral 720 ml 480 ml IV Total 550 ml 700 ml Output Urine Total 800 ml # Voids 2 # Bowel Movements 1 1 Laboratory Tests Test 02/04/19 11:45 Sodium Level 133 MMOL/L (136-145) L Potassium Level 4.2 MMOL/L (3.5-5.1) Chloride Level 99 MMOL/L (98-107) Carbon Dioxide Level 24 MMOL/L (21-32) Anion Gap 10 mmol/L (5-15) Blood Urea Nitrogen 13 mg/dL (7-18) Creatinine 1.1 MG/DL (0.55-1.30) Estimat Glomerular Filtration Rate mL/min (>60) Glucose Level 99 MG/DL (74-106) Calcium Level 8.4 MG/DL (8.5-10.1) L Phosphorus Level 2.3 MG/DL (2.5-4.9) L Magnesium Level 1.4 MG/DL (1.8-2.4) L Total Bilirubin 0.6 MG/DL (0.2-1.0) Aspartate Amino Transf (AST/SGOT) 95 U/L (15-37) H Alanine Aminotransferase (ALT/SGPT) 67 U/L (12-78) Alkaline Phosphatase 306 U/L (46-116) H Total Protein 6.8 G/DL (6.4-8.2) Albumin 2.3 G/DL (3.4-5.0) L Globulin 4.5 g/dL Albumin/Globulin Ratio 0.5 (1.0-2.7) L Objective HEAD AND NECK: Showed no JVD. LUNGS: Clear. CARDIOVASCULAR: Regular S1 and S2 with no gallop or murmur. ABDOMEN: Soft. EXTREMITIES: No pitting edema. Status post left hip surgery. Kirby Paiz MD Feb 04, 2019 12:28
--- NOTE | 2019-02-04 12:47 | NUR ---
NURSE NOTES: per dr whitlock, yes to cbc no to blood transfusion.
--- NOTE | 2019-02-04 13:02 | Nephrology Progress Note ---
Assessment/Plan Problem List: (1) Renal failure (ARF), acute on chronic (2) Hyponatremia (3) Intertrochanteric fracture of left hip (4) Iron deficiency anemia (5) Troponin level elevated (6) Anemia Assessment: worsening Assessment Acute Renal failure --Cr lower with hydration ? Underlying CKD Fall, Left Hip fx Anemia low Iron Hyponatremia improving Plan Phos and Mag and K as needed jean discontinued by PMD post hip surgery, per ortho Cardiology advise for acute rise of Troponin stop hydrate Stool Softner IV Iron Urine studies monitor renal parameters per orders Subjective ROS Limited/Unobtainable: No Constitutional: Reports: malaise Objective Objective Last 24 Hour Vital Signs Date Time Temp Pulse Resp B/P (MAP) Pulse Ox O2 Delivery O2 Flow Rate FiO2 02/04/19 09:00 Room Air 02/04/19 08:00 83 02/04/19 08:00 99.5 84 18 132/78 (96) 96 02/04/19 04:00 99.7 78 18 123/69 (87) 96 02/04/19 04:00 70 02/04/19 00:00 99.4 74 18 120/70 (87) 96 02/04/19 00:00 66 02/03/19 21:00 Room Air 02/03/19 20:00 65 02/03/19 20:00 99.1 68 18 129/73 (91) 95 02/03/19 16:23 98.9 77 18 127/68 (87) 99 02/03/19 16:00 72 Intake and Output 02/03/19 02/04/19 19:00 07:00 Intake Total 1270 ml 1180 ml Output Total 800 ml Balance 1270 ml 380 ml Intake Oral 720 ml 480 ml IV Total 550 ml 700 ml Output Urine Total 800 ml # Voids 2 # Bowel Movements 1 1 Laboratory Tests 02/04/19 11:45: Sodium Level 133L, Potassium Level 4.2, Chloride Level 99, Carbon Dioxide Level 24, Anion Gap 10, Blood Urea Nitrogen 13, Creatinine 1.1, Estimat Glomerular Filtration Rate , Glucose Level 99, Calcium Level 8.4L, Phosphorus Level 2.3L, Magnesium Level 1.4L, Total Bilirubin 0.6, Aspartate Amino Transf (AST/SGOT) 95H , Alanine Aminotransferase (ALT/SGPT) 67, Alkaline Phosphatase 306H, Total Protein 6.8, Albumin 2.3L, Globulin 4.5, Albumin/Globulin Ratio 0.5L Height (Feet): 5 Height (Inches): 6.00 Weight (Pounds): 153 General Appearance: no apparent distress Cardiovascular: normal rate Respiratory/Chest: decreased breath sounds Abdomen: soft Objective no change Denver Weiss MD Feb 04, 2019 13:02
[2019-02-04 13:11] LABS: BASOPHILS % (AUTO) 0.9 % (0.0-2.0); HEMOGLOBIN 8.3 G/DL (14.2-18.0); LYMPHOCYTES % (AUTO) 8.3 % (20.0-45.0); MEAN CORPUSCULAR VOLUME 90 FL (80-99); NEUTROPHILS % (AUTO) 76.8 % (45.0-75.0); PLATELET COUNT 250 K/UL (150-450); RED BLOOD COUNT 2.89 M/UL (4.70-6.10); RED CELL DISTRIBUTION WIDTH 14.1 % (11.6-14.8); WHITE BLOOD COUNT 9.2 K/UL (4.8-10.8)
--- NOTE | 2019-02-04 14:12 | NUR ---
DISCHARGE PLANNED RECEIVED CALL FROM RONNIE AT [facility] ACCEPTING THIS PATIENT PATIENT WILL DISCHARGE TO [facility] ARU ROOM 409 T: [phone] FOR NURSE TO NURSE REPORT [facility] HAS BEEN ARRANGED FOR [address]
--- NOTE | 2019-02-04 14:19 | General Progress Note ---
Assessment/Plan Assessment/Plan S: I am ok O: denies any severe pain , left sided hip pain is well managed. tolerating PO diet PHYSICAL EXAMINATION:HEAD AND NECK: Atraumatic and normocephalic. CHEST: Clear to auscultation.HEART: S1, S2. Regular rate and rhythm. ABDOMEN: Soft. No organomegaly.MUSCULOSKELETAL: post op changes in left hip noted. Positive for decreased range of motion on the left lower extremity.NEUROLOGY: The patient is awake, alert, oriented x3. Meds: reviewed and reconciled in chart including ASA ASSESSMENT AND PLAN: 1. Acute left-sided intertrochanteric fracture secondary to mechanical fall. 2. Troponin Rise post Op. NSTEMI ?!, troponin leakage 2. Hypothyroidism. 3. Abnormal LFT. 4. Renal failure - age indeterminate. 5. Gastrointestinal and DVT prophylaxes. PLAN OF CARE: Will transfer to [facility] Discussed and consulted with Dr Carvalho Decreasing Trop levels Will monitor serial troponin level ,may be transferred to [facility] for Ccath or for ARU once medically clear Successful extraction [place] and Voiding trial Medically stable for outpatient followup Subjective Allergies: Coded Allergies: No Known Allergies (Unverified , 01/28/19) Objective Last 24 Hour Vital Signs Date Time Temp Pulse Resp B/P (MAP) Pulse Ox O2 Delivery O2 Flow Rate FiO2 02/04/19 12:00 98.9 67 20 127/72 (90) 100 02/04/19 09:00 Room Air 02/04/19 08:00 83 02/04/19 08:00 99.5 84 18 132/78 (96) 96 02/04/19 04:00 99.7 78 18 123/69 (87) 96 02/04/19 04:00 70 02/04/19 00:00 99.4 74 18 120/70 (87) 96 02/04/19 00:00 66 02/03/19 21:00 Room Air 02/03/19 20:00 65 02/03/19 20:00 99.1 68 18 129/73 (91) 95 02/03/19 16:23 98.9 77 18 127/68 (87) 99 02/03/19 16:00 72 Intake and Output 02/03/19 02/04/19 19:00 07:00 Intake Total 1270 ml 1180 ml Output Total 800 ml Balance 1270 ml 380 ml Intake Oral 720 ml 480 ml IV Total 550 ml 700 ml Output Urine Total 800 ml # Voids 2 # Bowel Movements 1 1 Laboratory Tests 02/04/19 11:45: White Blood Count 9.2, Red Blood Count 2.89L, Hemoglobin 8.3L, Hematocrit 26.0L , Mean Corpuscular Volume 90, Mean Corpuscular Hemoglobin 28.9, Mean Corpuscular Hemoglobin Concent 32.1, Red Cell Distribution Width 14.1, Platelet Count 250, Mean Platelet Volume 6.2L, Neutrophils (%) (Auto) 76.8H, Lymphocytes (%) (Auto) 8.3L, Monocytes (%) (Auto) 11.0H, Eosinophils (%) (Auto) 3.0, Basophils (%) (Auto) 0.9, Sodium Level 133L, Potassium Level 4.2, Chloride Level 99, Carbon Dioxide Level 24, Anion Gap 10, Blood Urea Nitrogen 13, Creatinine 1.1, Estimat Glomerular Filtration Rate , Glucose Level 99, Calcium Level 8.4L, Phosphorus Level 2.3L, Magnesium Level 1.4L, Total Bilirubin 0.6, Aspartate Amino Transf (AST/SGOT) 95H, Alanine Aminotransferase (ALT/SGPT) 67, Alkaline Phosphatase 306H, Total Protein 6.8, Albumin 2.3L, Globulin 4.5, Albumin/Globulin Ratio 0.5L Height (Feet): 5 Height (Inches): 6.00 Weight (Pounds): 153 Guille Stephen MD Feb 04, 2019 14:19
[2019-02-04] MEDS ORDERED: Sodium Phosphate 30 MM in NS 275 ML IVPB ONE (14:30)
--- NOTE | 2019-02-04 16:00 | NUR ---
NURSE NOTES: Called out report to [facility],spoke with Lyndsay Don RN,updated re pt's status,,medic,BM, V/S and drsg to RT HIP incision and ETA.
[2019-02-04 16:12] VITALS: BP 135/75
--- NOTE | 2019-02-04 19:40 | NUR ---
NURSE NOTES: IV to LT FA removed and drsg applied,no bleeding noted to skin site,ambulance here,report given.pt called family members per cellphone of discharge to [facility] ARU.
--- NOTE | 2019-02-04 19:43 | NUR ---
NURSE NOTES: Pt discharged and out of the unit awake,alert in no resp distress accompanied by ambulance personnel.
--- NOTE | 2019-02-06 14:44 | Discharge Summary ---
Discharge Summary Discharge Summary _ DATE OF ADMISSION: 01/28/2019 DATE OF DISCHARGE: 02/04/2019 DISCHARGED BY: Dr. Stephen REASON FOR ADMISSION: 78 years old male with past medical history of hypertension, arthritis, homeless , tripped and fell last night and injured his left hip. Patient was unable to walk and laid on the ground all night. He denied loss of consciousness, any head injury or headache. No neck pain. Left hip pain was constant and worse with the movement. Upon evaluation vital signs were stable. Left hip x-ray revealed left hip intertrochanteric fracture. Patient was admitted for further management of left hip fracture. CONSULTANTS: bologna lacer Dr. Sr veneer drier Dr. Weiss orthopedic surgery Dr. Goncalves physical medicine rehabilitation Dr Benítez [facility]: Patient admitted. Pain management and supportive care was provided Patient started on the IV hydration. Orthopedic surgery consult was requested . Echocardiogram revealed preserved ejection fraction of 55% with mild left ventricular hypertrophy. No evidence of wall motion abnormality. Grade 1 diastolic dysfunction. Right ventricular systolic pressure of 13. Urinalysis revealed +1 protein, microscopic hematuria, but no evidence of UTI. Initial troponin negative. Patient subsequently on undergone left hip open reduction with internal fixation. Surgeon closely followed. Pain management was addressed. Patient started on DVT prophylaxis. Patient subsequently noted on to have elevated troponin - 3.178. Staffing Recruiter closely followed. Troponin started to trend down and last troponin was 1.3. According to bologna lacer , patient had non-STEMI with ( inferolateral ischemia on EKG) and troponin elevation ( went from negative to 3.17 and then down to 1.3). Patient however denied any chest pain and shortness of breath. Patient started on antiplatelet therapy with aspirin and statin. Lipid panel was stable Patient initially was on beta-marii, but it was discontinued secondary to hypotension. After stabilization patient will need cardiac catheterization, as per cardiology suggestion. Patient had history of hypertension , but demonstrated hypotension while in the hospital. Metoprolol stopped, and blood pressure stabilized. Renal parameters and electrolytes were closely monitored. Esthetician followed. Electrolytes corrected as needed. Nephrotoxins were avoided. Patient was off ADALBERTO inhibitor as per veneer drier . Creatinine trended down with hydration. Urine studies done. Prior to discharge BUN from 35 down to 13, and creatinine from 2.1 down to 1.1 . Acute kidney injury resolved. Renal ultrasound was negative for hydronephrosis. Normal bilateral kidney echogenicity. Heavy posterior trabeculation raised concern for chronic bladder outlet obstruction. Mildly enlarged prostate noted. Flomax continued. DVT and GI prophylaxis provided. Patient was working with physical therapist. Fall precautions maintained. Surgeon allowed 50% weightbearing for 6 weeks and then follow-up with orthopedic surgeon as outpatient. Hemoglobin and hematocrit were closely monitored with goal to keep hemoglobin above 7. Anemia workup revealed low iron. Patient received IV Venofer . Stable B 12 and folate level. Prior to discharge hemoglobin 10.3, hematocrit 31.3. Bowel regimen instituted. Levothyroxine continued. LFT and bilirubin closely monitored, LFT without much improvement. Patient will need further monitoring of LFT in acute rehabilitation unit. Patient clinically stabilized and was ready for transfer to [facility] for rehabilitation. FINAL DIAGNOSES: Left hip intertrochanteric fracture secondary to fall Status post open reduction internal fixation left hip fracture Non-STEMI with inferolateral ischemia on EKG Hypotension Renal failure ,acute on chronic Iron deficiency anemia Abnormal LFT Hypothyroidism DISCHARGE MEDICATIONS: List of medication was sent with patient. DISCHARGE INSTRUCTIONS: Patient was discharged to [facility] to acute rehabilitation unit for further rehabilitation. I have been assigned to dictate discharge summary for this account. I was not involved in the patient's management. Neela Theodore NP Feb 06, 2019 14:44
== END 2019-02-04 20:01 | disposition short-term general hospital (02) | DRG 480 ==
LOC: EDBD 14:07 → EMR 14:30 → 3E 15:55 → EDBEDREQ 19:46 → 2W 01-31 15:18 → 2E 02-02 18:46
PROC: 0QS704Z Reposition Left Upper Femur with Internal Fixation Device, Open Approach (ICD-10-PCS; principal; 2019-01-29)
DX: S72.142A Displaced intertrochanteric fracture of left femur, initial encounter for closed fracture (principal); I21.4 Non-ST elevation (NSTEMI) myocardial infarction; N17.9 Acute kidney failure, unspecified; E87.1 Hypo-osmolality and hyponatremia; M96.662 Fracture of femur following insertion of orthopedic implant, joint prosthesis, or bone plate, left leg; W18.30XA Fall on same level, unspecified, initial encounter; Y92.410 Unspecified street and highway as the place of occurrence of the external cause; E03.9 Hypothyroidism, unspecified; Z59.0 Homelessness; I12.9 Hypertensive chronic kidney disease with stage 1 through stage 4 chronic kidney disease, or unspecified chronic kidney disease; N18.9 Chronic kidney disease, unspecified; D50.9 Iron deficiency anemia, unspecified; I95.9 Hypotension, unspecified; R50.9 Fever, unspecified
CPT/HCPCS: 36415; 72170; 73502; 76770; 80048; 80053; 80061; 81001; 82550; 82607; 82728; 82746; 82977; 83036; 83540; 83550; 83735; 83880; 84100; 84300; 84443; 84484; 84550; 85007; 85025; 85610; 85730; 86140; 86900; 86901; 87086; 87181; 93005; 93306; 94003; 94150; 96374; 96375; 99285; J2250; J2405

== ENCOUNTER 2020-01-27 23:19 | Emergency (ER) | payer MEDICARE, OTHER ==
[~2020-01-27] VITALS: Ht 162.6 cm; Wt 81.6 kg
[~2020-01-27 23:19] MED LIST: COSOPT EYE DROP10 M1 OP; LATANOPROST2.5 ML BOTH EYES
[2020-01-27] MEDS ORDERED: FLOMAX0.4 MG ORAL (23:28)
[2020-01-27] MEDS ORDERED: PROSCAR5 MG ORAL (23:28)
--- NOTE | 2020-01-27 23:31 | NUR ---
ED Nurse Note: pt presents toED via EMS arrival RA [id number] for blood in his jean catheter x 2 hours. per pt, he had a prostate surgery 2 weeks ago and the jean was placed after this. pt denies px, describes discomfort due to urinary retention
[2020-01-27 23:33] VITALS: BP 165/81
[2020-01-28 00:41] LABS: BILIRUBIN, URINE NEGATIVE (NEGATIVE); COLOR,URINE RED; GLUCOSE, URINE (UA) NEGATIVE (NEGATIVE); KETONES,URINE NEGATIVE (NEGATIVE); LEUKOCYTE ESTERASE ,URINE NEGATIVE (NEGATIVE); NITRITE,URINE NEGATIVE (NEGATIVE); PH,URINE 8 (4.5-8.0); PROTEIN,URINE 4+ (NEGATIVE); UROBILINOGEN,URINE NORMAL MG/DL (0.0-1.0)
[2020-01-28 00:42] LABS: ANION GAP 9 mmol/L (5-15); BLOOD UREA NITROGEN 29 mg/dL (7-18); CALCIUM 9.5 MG/DL (8.5-10.1); CARBON DIOXIDE 24 MMOL/L (21-32); CHLORIDE 102 MMOL/L (98-107); CREATININE 1.3 MG/DL (0.55-1.30); POTASSIUM 4.8 MMOL/L (3.5-5.1); SODIUM 135 MMOL/L (136-145)
[2020-01-28 00:43] LABS: EOSINOPHILS % (AUTO) 3.5 % (0.0-3.0); HEMATOCRIT 32.7 % (42.0-52.0); HEMOGLOBIN 11.3 G/DL (14.2-18.0); LYMPHOCYTES % (AUTO) 13.9 % (20.0-45.0); MEAN CORPUSCULAR VOLUME 84 FL (80-99); MONOCYTES % (AUTO) 9.3 % (1.0-10.0); NEUTROPHILS % (AUTO) 72.3 % (45.0-75.0); PLATELET COUNT 430 K/UL (150-450); RED BLOOD COUNT 3.87 M/UL (4.70-6.10); RED CELL DISTRIBUTION WIDTH 12.7 % (11.6-14.8); WHITE BLOOD COUNT 14.4 K/UL (4.8-10.8)
[2020-01-28 00:46] LABS: INR 0.9 (0.9-1.1)
[2020-01-28 01:09] LABS: APPEARANCE,URINE TURBID
[2020-01-28] MEDS ORDERED: ACETAMINOPHEN-1 EAC1 ORAL (01:17)
--- NOTE | 2020-01-28 01:17 | Emergency Room Report ---
History of Present Illness General Chief Complaint: Male Urogenital Problems Source: Patient, Medical Record Present Illness HPI Is a 79-year-old male with a history of prostate problem. He has a indwelling [place]. He presents with chief complaint of hematuria. Onset tonight. He has some suprapubic pain with it. No nausea no vomiting. No fever chills. No trauma. Not on blood thinner. Allergies: Coded Allergies: No Known Allergies (Unverified , 01/28/19) Patient History Past Medical History: see triage record, old chart reviewed Past Surgical History: other Pertinent Family History: none Social History: Denies: smoking Immunizations: other Reviewed Nursing Documentation: PMH: Agreed; PSxH: Agreed Nursing Documentation-PMH Hx Hypertension: Yes Review of Systems Eye: Denies: eye pain, blurred vision ENT: Denies: ear pain, nose congestion, throat swelling Respiratory: Denies: cough, shortness of breath Cardiovascular: Denies: chest pain, palpitations Gastrointestinal: Denies: abdominal pain, diarrhea, nausea, vomiting Genitourinary: Reports: hematuria Musculoskeletal: Denies: back pain, joint pain Skin: Denies: rash Neurological: Denies: headache, numbness Endocrine: Denies: increased thirst, increased urine Hematologic/Lymphatic: Denies: easy bruising All Other Systems: negative except mentioned in HPI Physical Exam Vital Signs Date Time Temp Pulse Resp B/P (MAP) Pulse Ox O2 Delivery O2 Flow Rate FiO2 01/27/20 23:23 98.2 61 18 165/81 (109) 97 Room Air Vitals with high blood pressure Sp02 EP Interpretation: reviewed, normal General Appearance: well appearing, no apparent distress, alert Head: normocephalic, atraumatic Eyes: bilateral eye PERRL, bilateral eye EOMI ENT: hearing grossly normal, normal pharynx Neck: full range of motion, supple, no meningismus Respiratory: chest non-tender, lungs clear, normal breath sounds Cardiovascular #1: regular rate, rhythm, no murmur Gastrointestinal: normal bowel sounds, no mass, no organomegaly, no bruit, non- distended, tenderness - Suprapubic Genitourinary: other - Patient with indwelling [place] with gross hematuria Musculoskeletal: back normal, normal range of motion, gait/station normal Psychiatric: mood/affect normal Medical Decision Making Diagnostic Impression: Primary Impression: Gross hematuria Additional Impression: Anemia Qualified Codes: D64.9 - Anemia, unspecified ER Course Presents with gross hematuria. Clear after irrigation. Nursing staff said there was a lot of clots. Now is clear. Hemoglobin stable. Will discharge home. Last Vital Signs Date Time Temp Pulse Resp B/P (MAP) Pulse Ox O2 Delivery O2 Flow Rate FiO2 01/27/20 23:33 98.2 99 18 165/81 97 Room Air Status: improved Disposition: HOME, SELF-CARE Condition: Stable Scripts Acetaminophen With Codeine (T#3) (TYLENOL #3 TAB*) Y Tab 1 TAB ORAL Q8H PRN for For Pain, #20 TAB Prov: Osmel Azul MD 01/28/20 Referrals: Guille Stephen MD (PCP) Additional Instructions: Follow-up with in 7 days. Return if worse. Osmel Azul MD Jan 28, 2020 01:17
[2020-01-28 01:40] VITALS: BP 165/81
--- NOTE | 2020-01-28 01:40 | NUR ---
ER DISCHARGE NOTE: Patient is cleared to be discharged per ERMD, pt is aox4, on room air, with stable vital signs. pt was given dc and prescription instructions, pt was able to verbalize understanding, pt id band and iv site removed without complications. pt is able to ambulate with steady gait. pt took all belongings.
== END 2020-01-28 02:00 | disposition home or self-care (01) ==
LOC: EDBD 23:19 → EDUNIT# 23:19 → EMR 23:58
DX: R31.9 Hematuria, unspecified (principal); D64.9 Anemia, unspecified; I10 Essential (primary) hypertension
CPT/HCPCS: 36415; 80048; 81001; 85025; 85610; 85730; 99283